=== PATIENT | female | born 1950 | race Hispanic/Latino ===

== ENCOUNTER 2017-07-22 13:47 | Emergency (ER) | payer OTHER ==
[2017-07-22] MEDS ORDERED: NA CHLORIDE 0.9% 1,000 ML ONE (14:37)
[2017-07-22] MEDS ORDERED: ALBUTEROL 2.5 MG/3 ML NEB SOL ONE (14:38)
[2017-07-22] MEDS ORDERED: METHYLPREDNISOLONE 125 MG INJ ONE (14:38)
[2017-07-22 15:13] LABS: Absolute Lymphocytes (CBC) 2.5 K/uL (0.7-4.9); Absolute Monocytes 0.7 K/uL (0.1-1.3); Absolute Neutrophil 5.2 K/uL (1.8-8.0); Basophils % 0.5 % (0-1.3); Eosinophils % 1.7 % (0-4.4); Hematocrit 35.3 % (36.0-45.0); Lymphocytes % 29.3 % (15.3-44.8); MCH 31.4 pg (27.0-35.0); MCV 95.6 fL (80-100); MPV 9.3 fL (7.6-11.3); Monocytes % 8.2 % (3.3-12.3); RBC Red Blood Cell Count 3.69 M/uL (3.86-4.86)
[2017-07-22 15:30] LABS: Magnesium 1.6 mg/dL (1.8-2.5); Protime INR 1.12
[2017-07-22 15:37] LABS: CKMB Creatine Kinase MB 0.9 ng/ml (0.3-4.0)
--- NOTE | 2017-07-22 16:04 | RAD REPORT ---
EXAM DESCRIPTION: RAD - Chest Pa And Lat (2 Views) - 07/22/2017 3:30 pm CLINICAL HISTORY: Cough and congestion COMPARISON: April 2016 TECHNIQUE: PA and lateral views of the chest were obtained. FINDINGS: The lungs are clear. Interstitial markings are similar to comparison. Small granuloma low er right lung field has not changed. Heart size is normal and central vasculature is within normal li mits. No pleural effusion or pneumothorax seen. No acute bony finding noted. No aortic abnormality . IMPRESSION: No acute cardiopulmonary process. No significant change from prior imaging.
[2017-07-22] MEDS ORDERED: MAGNESIUM OXIDE 400 MG TAB ONE (16:10)
--- NOTE | 2017-07-22 16:19 | ER ---
Nurse's Notes [facility] Name: Ct Mobley Age: 66 yrs Sex: Female : 1950 Arrival Date: 07/22/2017 Time: 13:51 Bed 19 Private MD: Darrian Montalvo E Diagnosis: Bronchitis, not specified as acute or chronic;Hypomagnesemia;Dehydration Presentation: 07/22 14:00 Presenting complaint: Child states: "her doctor sent her here because she's been taking aa5 Levaquin for a week and not getting better". pt c/o chest congestion and productive cough with white sputum. Pt also reports generalized weakness and body aches. Transition of care: patient was not received from another setting of care. Onset of symptoms was June 2017. Risk Assessment: Do you want to hurt yourself or someone else? Patient reports no desire to harm self or others. Initial Sepsis Screen: Does the patient meet any 2 criteria? No. Patient's initial sepsis screen is negative. Does the patient have a suspected source of infection? No. Patient's initial sepsis screen is negative. Care prior to arrival: None. 14:00 Method Of Arrival: Ambulatory aa5 14:00 Acuity: JASE 3 aa5 Triage Assessment: 14:30 General: Appears in no apparent distress. comfortable, Behavior is calm, cooperative. em Respiratory: Reports cough that is productive, pain with cough since 8 days ago Onset: The symptoms/episode began/occurred 8 days ago, the patient reports symptoms have resolved. Historical: - Allergies: 14:01 No Known Allergies; aa5 - PMHx: 14:01 Diabetes - NIDDM; Hypertension; Thyroid problem; aa5 - PSHx: 14:02 cataracts; aa5 - Immunization history:: Pneumococcal vaccine is not up to date. - Social history:: Smoking status: Patient/guardian denies using tobacco. - Ebola Screening: : No symptoms or risks identified at this time. - Family history:: not pertinent. - Hospitalizations: : No recent hospitalization is reported. - History obtained from: daughter. Screenin:29 Abuse screen: Denies threats or abuse. Nutritional screening: No deficits noted. em Tuberculosis screening: No symptoms or risk factors identified. Fall Risk None identified. Assessment: 14:20 General: Appears in no apparent distress. distressed, Behavior is calm, cooperative. em Pain: Complains of pain in chest. Neuro: Level of Consciousness is awake, alert, Oriented to person, place, time, situation. Cardiovascular: Heart tones S1 S2 present Capillary refill < 3 seconds Patient's skin is warm and dry. Rhythm is regular. Respiratory: Reports cough that is productive, pain with cough since 8 days Airway is patent Respiratory effort is even, unlabored, Respiratory pattern is regular, symmetrical, Breath sounds are clear bilaterally. GI: Abdomen is round non-distended, Patient currently denies nausea, vomiting. : No signs and/or symptoms were reported regarding the genitourinary system. EENT: No signs and/or symptoms were reported regarding the EENT system. Derm: Skin is intact, Skin is pink, warm \\T\\ dry. Musculoskeletal: Range of motion: intact in all extremities. 15:30 Reassessment: Patient appears in no apparent distress at this time. Patient and/or em family updated on plan of care and expected duration. Pain level reassessed. Patient is alert, oriented x 3, equal unlabored respirations, skin warm/dry/pink. Patient states feeling better. 16:30 Reassessment: Patient appears in no apparent distress at this time. Patient and/or em family updated on plan of care and expected duration. Pain level reassessed. Patient is alert, oriented x 3, equal unlabored respirations, skin warm/dry/pink. 16:31 Reassessment: I agree with above assessment by Mauricio Silva LVN. iw Vital Signs: 14:02 BP 130 / 75; Pulse 93; Resp 16 S; Temp 98.3(TE); Pulse Ox 95% on R/A; Weight 81.19 kg aa5 (R); Height 5 ft. 4 in. (162.56 cm) (R); Pain 8/10; 15:00 BP 115 / 62; Pulse 92; Resp 18; Pulse Ox 97% on R/A; em 16:14 BP 119 / 52; Pulse 97; Resp 16; Pulse Ox 97% on R/A; em 14:02 Body Mass Index 30.72 (81.19 kg, 162.56 cm) aa5 ED Course: 13:51 Patient arrived in ED. mr 13:51 Darrian Montalvo MD is Private Physician. mr 14:00 Arm band placed on. aa5 14:01 Triage completed. aa5 14:07 Jaime, Dawna, GLASS WORKER [facility]. kav 14:07 Manpreet Andino MD is Attending Physician. kav 14:29 Patient has correct armband on for positive identification. Bed in low position. Call em light in reach. Side rails up X2. Adult w/ patient. 14:30 No provider procedures requiring assistance completed. em 14:34 Mauricio Silva LVN is Primary Nurse. em 14:48 Radiology exam delayed due to patient receiving breathing treatment at this time. jb2 15:07 EKG done, by orthotic finish grinding technician. reviewed by Dawna BUI. sm3 15:26 Patient moved to radiology via wheelchair. jb2 15:26 X-ray completed. Patient tolerated procedure well. jb2 15:26 Patient moved back from radiology. jb2 15:27 XRAY Chest Pa And Lat (2 Views) In Process Unspecified. EDMS 16:18 Darrian Montalvo MD is Referral Physician. kav 16:50 IV discontinued, intact, bleeding controlled, No redness/swelling at site. Pressure em dressing applied. Administered Medications: 14:40 Drug: Albuterol 1.25 mg Route: Inhalation; em 15:05 Not Given (md): SOLU-Medrol 40 mg IVP once kav 15:06 Drug: SOLU-Medrol 125 mg Route: IVP; Site: right antecubital; iw 16:13 Follow up: Response: No adverse reaction em 15:14 Drug: NS 0.9% 1000 ml Route: IV; Rate: 75 ml/hr; Site: right antecubital; em 16:55 Follow up: IV Status: Completed infusion; IV Intake: 200ml em 16:13 Drug: Magnesium 400 mg Route: PO; em 16:54 Follow up: Response: No adverse reaction em Intake: 16:55 IV: 200ml; Total: 200ml. em Outcome: 16:19 Discharge ordered by . kav 16:55 Discharged to home ambulatory. em 16:55 Condition: good 16:55 Discharge instructions given to patient, family, Instructed on discharge instructions, follow up and referral plans. medication usage, Demonstrated understanding of instructions, follow-up care, medications, Prescriptions given X 4. 16:57 Patient left the ED. em Signatures: Dispatcher [employer] EDCT Dawna Sandoval FNP GLASS WORKER Bisi Amador mr [place], Tiburcio jb2 Mauricio Silva, PLASTIC AND RECONSTRUCTIVE SURGEON PLASTIC AND RECONSTRUCTIVE SURGEON em Ashlee Trejo RN RN iw Karena Guzman RN RN aa5 Adeola Cervantes 3 Corrections: (The following items were deleted from the chart) 16:17 12:40 Albuterol 1.25 mg Inhalation em em
--- NOTE | 2017-07-22 16:19 | EDPHYS ---
Physician Documentation [facility] Name: Ct Mobley Age: 66 yrs Sex: Female : 1950 Arrival Date: 07/22/2017 Time: 13:51 Bed 19 Private MD: Darrian Montalvo E ED Physician Manpreet Andino HPI: 07/22 14:21 This 66 yrs old Female presents to ER via Ambulatory with complaints of kav Shortness Of Breath, Weakness, Cough, Congestion. 14:21 The patient or guardian reports airway noise, cough, that is intermittent, described as kav moderate, with productive sputum, that is white. Onset: The symptoms/episode began/occurred acutely, 10 day(s) ago. Severity of symptoms: At their worst the symptoms were moderate, just prior to arrival, in the emergency department the symptoms are unchanged, despite taking antibiotic therapy: Levaquin and Prednisone for the past 8 days.. 14:25 Modifying factors: The symptoms are alleviated by nothing, the symptoms are aggravated kav by nothing. Associated signs and symptoms: The patient has no apparent associated signs or symptoms. The patient has experienced a previous episode, approximately 8 days ago. The patient has been recently seen by a physician: the patient's primary care provider, Dr. Trejo. Patient presents with chief c/o acute onset of cough x 10 days. Seen by pcp/dr. trejo approximately 8 days ago and give prescription for levaquin and prednisone. She denies fever. Oxygen saturation on RA OA is 99%, BP 124/72. Daughter at bedside. Patient is Cuban Speaking Only.. Historical: - Allergies: 14:01 No Known Allergies; aa5 - PMHx: 14:01 Diabetes - NIDDM; Hypertension; Thyroid problem; aa5 - PSHx: 14:02 cataracts; aa5 - Immunization history:: Pneumococcal vaccine is not up to date. - Social history:: Smoking status: Patient/guardian denies using tobacco. - Ebola Screening: : No symptoms or risks identified at this time. - Family history:: not pertinent. - Hospitalizations: : No recent hospitalization is reported. - History obtained from: daughter. ROS: 14:27 Constitutional: Negative for fever, chills, and weight loss, Eyes: Negative for injury, kav pain, redness, and discharge, ENT: Negative for injury, pain, and discharge, Neck: Negative for injury, pain, and swelling, Cardiovascular: Negative for chest pain, palpitations, and edema, Abdomen/GI: Negative for abdominal pain, nausea, vomiting, diarrhea, and constipation, Back: Negative for injury and pain, : Negative for injury, bleeding, discharge, and swelling, MS/Extremity: Negative for injury and deformity, Skin: Negative for injury, rash, and discoloration, Neuro: Negative for headache, weakness, numbness, tingling, and seizure, Psych: Negative for depression, anxiety, suicide ideation, homicidal ideation, and hallucinations, Allergy/Immunology: Negative for hives, rash, and allergies, Endocrine: Negative for neck swelling, polydipsia, polyuria, polyphagia, and marked weight changes, Hematologic/Lymphatic: Negative for swollen nodes, abnormal bleeding, and unusual bruising. 14:27 Respiratory: Positive for cough, with white sputum, wheezing, expiratory, of the left posterior lower lobe, right posterior middle lobe and right posterior lower lobe, Negative for dyspnea on exertion, hemoptysis, orthopnea, pleurisy, shortness of breath. Exam: 14:27 Constitutional: This is a well developed, well nourished patient who is awake, alert, kav and in no acute distress. Head/Face: Normocephalic, atraumatic. Eyes: Pupils equal round and reactive to light, extra-ocular motions intact. Lids and lashes normal. Conjunctiva and sclera are non-icteric and not injected. Cornea within normal limits. Periorbital areas with no swelling, redness, or edema. ENT: Nares patent. No nasal discharge, no septal abnormalities noted. Tympanic membranes are normal and external auditory canals are clear. Oropharynx with no redness, swelling, or masses, exudates, or evidence of obstruction, uvula midline. Mucous membranes moist. Neck: Trachea midline, no thyromegaly or masses palpated, and no cervical lymphadenopathy. Supple, full range of motion without nuchal rigidity, or vertebral point tenderness. No Meningismus. Chest/axilla: Normal chest wall appearance and motion. Nontender with no deformity. No lesions are appreciated. Cardiovascular: Regular rate and rhythm with a normal S1 and S2. No gallops, murmurs, or rubs. Normal PMI, no JVD. No pulse deficits. Abdomen/GI: Soft, non-tender, with normal bowel sounds. No distension or tympany. No guarding or rebound. No evidence of tenderness throughout. Back: No spinal tenderness. No costovertebral tenderness. Full range of motion. Skin: Warm, dry with normal turgor. Normal color with no rashes, no lesions, and no evidence of cellulitis. MS/ Extremity: Pulses equal, no cyanosis. Neurovascular intact. Full, normal range of motion. Neuro: Awake and alert, GCS 15, oriented to person, place, time, and situation. Cranial nerves II-XII grossly intact. Motor strength 5/5 in all extremities. Sensory grossly intact. Cerebellar exam normal. Normal gait. Psych: Awake, alert, with orientation to person, place and time. Behavior, mood, and affect are within normal limits. 14:27 Respiratory: the patient does not display signs of respiratory distress, Respirations: no acute changes, Breath sounds: rhonchi, that are moderate, are located in both bases, wheezing: that is mild. Vital Signs: 14:02 BP 130 / 75; Pulse 93; Resp 16 S; Temp 98.3(TE); Pulse Ox 95% on R/A; Weight 81.19 kg aa5 (R); Height 5 ft. 4 in. (162.56 cm) (R); Pain 8/10; 15:00 BP 115 / 62; Pulse 92; Resp 18; Pulse Ox 97% on R/A; em 16:14 BP 119 / 52; Pulse 97; Resp 16; Pulse Ox 97% on R/A; em 14:02 Body Mass Index 30.72 (81.19 kg, 162.56 cm) aa5 MDM: 14:07 Medical screening is not applicable. [facility] 14:27 Data reviewed: vital signs, nurses notes. [facility] 16:18 Data reviewed: lab test result(s), CBC, electrolytes, radiologic studies. 07/22 14:24 Order name: Blood Culture Adult (2) 07/22 14:24 Order name: BNP; Complete Time: 15:51 [facility] 07/22 15:51 Interpretation: Within normal limits. 07/22 14:24 Order name: CBC with Diff; Complete Time: 15:51 [facility] 07/22 15:51 Interpretation: Normal except: RBC 3.69; HGB 11.6; HCT 35.3. 07/22 14:24 Order name: Ckmb; Complete Time: 15:52 07/22 15:52 Interpretation: Within normal limits. 07/22 14:24 Order name: CPK; Complete Time: 15:52 07/22 15:52 Interpretation: Within normal limits. 07/22 14:24 Order name: D-Dimer; Complete Time: 16:16 07/22 16:16 Interpretation: Within normal limits. 07/22 14:24 Order name: XRAY Chest Pa And Lat (2 Views); Complete Time: 16:16 07/22 16:17 Interpretation: No acute disease. 07/22 14:24 Order name: Magnesium; Complete Time: 15:51 07/22 15:51 Interpretation: MG 1.6. 07/22 14:24 Order name: PT-INR; Complete Time: 16:16 07/22 16:16 Interpretation: Normal except: PT 13.2. 07/22 14:24 Order name: Ptt, Activated; Complete Time: 16:16 07/22 16:17 Interpretation: Within normal limits. 07/22 14:24 Order name: Troponin (emerg Dept Use Only); Complete Time: 15:52 07/22 15:52 Interpretation: Within normal limits. 07/22 14:24 Order name: Influenza Screen (a \T\ B); Complete Time: 15:52 07/22 15:52 Interpretation: Within normal limits. 07/22 14:24 Order name: EKG; Complete Time: 14:25 07/22 14:24 Order name: Cardiac monitoring; Complete Time: 14:36 07/22 14:24 Order name: EKG - Nurse/Tech; Complete Time: 14:36 07/22 14:24 Order name: IV Saline Lock; Complete Time: 14:36 07/22 14:24 Order name: Labs collected and sent; Complete Time: 14:36 07/22 14:24 Order name: O2 Per Protocol; Complete Time: 14:36 07/22 14:24 Order name: O2 Sat Monitoring; Complete Time: 14:36 kav Administered Medications: 14:40 Drug: Albuterol 1.25 mg Route: Inhalation; em 15:05 Not Given (): SOLU-Medrol 40 mg IVP once kav 15:06 Drug: SOLU-Medrol 125 mg Route: IVP; Site: right antecubital; iw 16:13 Follow up: Response: No adverse reaction em 15:14 Drug: NS 0.9% 1000 ml Route: IV; Rate: 75 ml/hr; Site: right antecubital; em 16:55 Follow up: IV Status: Completed infusion; IV Intake: 200ml em 16:13 Drug: Magnesium 400 mg Route: PO; em 16:54 Follow up: Response: No adverse reaction em Disposition: 17:02 Co-signature as Attending Physician, Manpreet Andino MD I agree with the assessment and kdr plan of care. Disposition: 07/22/17 16:19 Discharged to Home. Impression: Bronchitis, not specified as acute or chronic, Hypomagnesemia, Dehydration. - Condition is Stable. - Discharge Instructions: Hypomagnesemia, Upper Respiratory Infection, Adult, Acute Bronchitis, [id number], Dehydration, Adult, [id number]. - Prescriptions for Advair Diskus 500- 50 mcg/Dose Inhalation Disk with Device - inhale 1 puff by INHALATION route every 12 hours; 1 packet. Zithromax Z- Jose 250 mg Oral Tablet - take 1 tablet by ORAL route as directed for 5 days Day 1 - take two (2) tablets one time. Day 2, 3, 4 , 5 take one (1) tablet once daily.; 6 tablet. benzonatate 100 mg Oral Capsule - take 1 capsule by ORAL route 3 times per day; 30 capsule. Albuterol Sulfate 2.5 mg /3 mL (0.083 %) Inhalation Solution for Nebulization - inhale 1 unit by NEBULIZATION route every 8 hours As needed; 1 box. - Medication Reconciliation Form, Thank You Letter, Antibiotic Education, Prescription Opioid Use form. - Follow up: Darrian Montalvo MD; When: 2 - 3 days; Reason: If symptoms return, Recheck today's complaints, Continuance of care, Re-evaluation by your physician. - Problem is new. - Symptoms have improved. Signatures: Dispatcher [employer] Manpreet Guillory MD MD kdr Vern, Katherine, SCISSORS GRINDER SCISSORS GRINDER Mauricio Dominguez, PURCHASING BUYER PURCHASING BUYER em Ashlee Trejo, RN RN iw Karena Guzman, RN RN aa5 Corrections: (The following items were deleted from the chart) 16:57 16:19 07/22/2017 16:19 Discharged to Home. Impression: Bronchitis, not specified as em acute or chronic; Hypomagnesemia; Dehydration. Condition is Stable. Forms are Medication Reconciliation Form, Thank You Letter, Antibiotic Education, Prescription Opioid Use. Follow up: Darrian Montalvo; When: 2 - 3 days; Reason: If symptoms return, Recheck today's complaints, Continuance of care, Re-evaluation by your physician. Problem is new. Symptoms have improved. kav
--- NOTE | 2017-07-22 18:30 | EKG ---
Test Date: 2017-07-22 Test Time: 14:46:16 Trolley Wire Installer: JUNE MEASUREMENT RESULTS: Intervals: Rate: 85 NH: 178 QRSD: 88 QT: 380 QTc: 452 [place]: P: 73 NH: 178 QRS: 38 T: 46 INTERPRETIVE STATEMENTS: Normal sinus rhythm Normal ECG Compared to ECG 02/29/2016 00:17:14 No significant changes Electronically Signed On 07-22-17 18:29:58 CDT by Hay Gill
== END 2017-07-22 16:57 | disposition home or self-care (01) ==
LOC: ER 13:47
DX: J40 Bronchitis, not specified as acute or chronic (principal); E83.42 Hypomagnesemia; E86.0 Dehydration; E11.9 Type 2 diabetes mellitus without complications; I10 Essential (primary) hypertension
CPT/HCPCS: 36415; 71046; 82550; 82553; 83735; 83880; 84484; 85025; 85379; 85610; 85730; 87040 ×2; 87804 ×2; 93005; 96361; 96374; 99284; J2930; J7030

== ENCOUNTER 2018-02-08 17:20 | Emergency (ER) | payer OTHER ==
--- NOTE | 2018-02-08 19:10 | RAD REPORT ---
EXAM DESCRIPTION: CT - Head Brain Wo Cont - 02/08/2018 6:47 pm CLINICAL HISTORY: Headache, dizziness, head and face pain COMPARISON: None. TECHNIQUE: Axial 5 mm thick images of the head were obtained without IV contrast. All CT scans are performed using dose optimization technique as appropriate and may include automated exposure control or mA/KV adjustment according to patient size. FINDINGS: No intracranial hemorrhage, mass, edema or shift of mid-line structures. No acute infarcti on changes seen. Minimal atrophy and chronic ischemic changes are present. Ventricles are normal. Mastoid air cells and visualized portions of the paranasal sinuses are clear. No acute bony findings. IMPRESSION: Negative non-contrast CT head examination for acute finding.
--- NOTE | 2018-02-08 19:38 | ER ---
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 Transition of care: patient was not received from another setting of care. Onset of symptoms was February 08, 2018. Risk Assessment: Do you want to hurt yourself or someone else? Patient reports no desire to harm self or others. Initial Sepsis Screen: Does the patient meet any 2 criteria? No. Patient's initial sepsis screen is negative. Does the patient have a suspected source of infection? No. Patient's initial sepsis screen is negative. Care prior to arrival: None. 17:22 Method Of Arrival: Ambulatory 17:22 Acuity: JASE 4 hj Triage Assessment: 17:26 Headache History: Denies prior headaches. General: Appears in no apparent distress. hj uncomfortable, Behavior is calm, cooperative, appropriate for age. Pain: Complains of pain in throat, head, body Pain Pain began 2-3 days ago. Also complains of. Neuro: Level of Consciousness is awake, alert, obeys commands, Oriented to person, place, time, situation, Appropriate for age. Historical: - Allergies: 17:26 No Known Allergies; hj - Home Meds: 17:26 losartan 50 mg Oral tab [Active]; Metformin Oral [Active]; omeprazole magnesium Oral hj [Active]; - PMHx: 17:26 Diabetes - NIDDM; Hypertension; Thyroid problem; hj - PSHx: 17:26 cataracts; hj - Immunization history:: Adult Immunizations not up to date. - Social history:: Smoking status: Patient/guardian denies using tobacco, Patient/guardian denies using alcohol. - Ebola Screening: : Patient negative for fever greater than or equal to 101.5 degrees Fahrenheit, and additional compatible Ebola Virus Disease symptoms Patient denies exposure to infectious person Patient denies travel to an Ebola-affected area in the 21 days before illness onset. Screenin:26 Abuse screen: Denies threats or abuse. Denies injuries from another. Nutritional hj screening: No deficits noted. Tuberculosis screening: No symptoms or risk factors identified. Fall Risk None identified. Assessment: 18:07 General: Appears in no apparent distress. Behavior is calm, cooperative. Pain: la1 Complains of pain in left ethmoid sinus and right ethmoid sinus. Neuro: Level of Consciousness is awake, alert, obeys commands, Oriented to person, place, time, situation. Neuro: Sock Turner are equal bilaterally Moves all extremities. Full function Gait is steady, Speech is normal, Facial symmetry appears normal, Pupils are PERRLA. Cardiovascular: Heart tones S1 S2 present Capillary refill < 3 seconds Patient's skin is warm and dry. Respiratory: Airway is patent Respiratory effort is even, unlabored, Respiratory pattern is regular, symmetrical. GI: No signs and/or symptoms were reported involving the gastrointestinal system. : No signs and/or symptoms were reported regarding the genitourinary system. 19:33 Reassessment: Patient appears in no apparent distress at this time. No changes from la1 previously documented assessment. Patient and/or family updated on plan of care and expected duration. Pain level reassessed. Vital Signs: 17:27 BP 155 / 88; Pulse 83; Resp 18; Temp 97.7(O); Pulse Ox 98% on R/A; Weight 78.93 kg; hj Height 5 ft. 9 in. (175.26 cm); Pain 7/10; 19:45 BP 147 / 74; Pulse 86; Resp 16; Pulse Ox 98% on R/A; la1 17:27 Body Mass Index 25.70 (78.93 kg, 175.26 cm) ED Course: 17:21 Patient arrived in ED. 17:25 Triage completed. 17:27 Arm band placed on right wrist. 17:27 Patient has correct armband on for positive identification. Bed in low position. Call light in reach. Side rails up X 1. Adult w/ patient. 17:[address] F[facility]-C [facility]. kb 17:29 Daniel De Santiago MD is Attending Physician. kb 17:38 Rolando Corcoran RN is Primary Nurse. la1 18:48 CT Head Brain wo Cont In Process Unspecified. EDMS 19:45 No provider procedures requiring assistance completed. Patient did not have IV access la1 during this emergency room visit. Administered Medications: No medications were administered Outcome: 19:37 Discharge ordered by . grayson 19:45 Discharged to home ambulatory. la1 19:45 Condition: stable 19:45 Discharge instructions given to patient, Instructed on discharge instructions, follow up and referral plans. Demonstrated understanding of instructions, follow-up care. 19:46 Patient left the ED. 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 hj 9 in.; BMI: 25.7; Pain 7/10; hj
--- NOTE | 2018-02-08 19:38 | EDPHYS ---
Physician Documentation [facility] Name: Ct Mobley Age: 67 yrs Sex: Female : 1950 Arrival Date: 02/08/2018 Time: 17:21 Bed 27 Private MD: ED Physician Daniel De Santiago HPI: 02/08 17:46 This 67 yrs old Female presents to ER via Ambulatory with complaints of kb Headache, Dizziness. 17:46 The patient or guardian reports cough, that is intermittent, described as mild, with no kb sputum, flu symptoms, arthralgias, myalgias. Onset: The symptoms/episode began/occurred 2 day(s) ago. Severity of symptoms: At their worst the symptoms were moderate, in the emergency department the symptoms are unchanged. Modifying factors: The symptoms are alleviated by nothing, the symptoms are aggravated by nothing. Associated signs and symptoms: Pertinent positives: fever, rhinorrhea, sore throat, Pertinent negatives: chest pain, diarrhea, ear ache, nausea, vomiting. The patient has not experienced similar symptoms in the past. The patient has not recently seen a physician. Pt reports sinus congestion, pain, fever,chills, cough, headache and body aches for a few days. Historical: - Allergies: 17:26 No Known Allergies; hj - Home Meds: 17:26 losartan 50 mg Oral tab [Active]; Metformin Oral [Active]; omeprazole magnesium Oral hj [Active]; - PMHx: 17:26 Diabetes - NIDDM; Hypertension; Thyroid problem; hj - PSHx: 17:26 cataracts; hj - Immunization history:: Adult Immunizations not up to date. - Social history:: Smoking status: Patient/guardian denies using tobacco, Patient/guardian denies using alcohol. - Ebola Screening: : Patient negative for fever greater than or equal to 101.5 degrees Fahrenheit, and additional compatible Ebola Virus Disease symptoms Patient denies exposure to infectious person Patient denies travel to an Ebola-affected area in the 21 days before illness onset. ROS: 17:43 Cardiovascular: Negative for chest pain, palpitations, and edema, Abdomen/GI: Negative kb for abdominal pain, nausea, vomiting, diarrhea, and constipation, Back: Negative for injury and pain, MS/Extremity: Negative for injury and deformity, Skin: Negative for injury, rash, and discoloration. 17:43 Constitutional: Positive for body aches, chills, fatigue, fever, malaise, Negative for poor PO intake, weight loss. 17:43 ENT: Positive for rhinorrhea, sinus congestion, sinus pain, sore throat. 17:43 Respiratory: Positive for cough, Negative for dyspnea on exertion, hemoptysis, orthopnea, pleurisy, shortness of breath, sputum production, wheezing. Exam: 17:45 Constitutional: This is a well developed, well nourished patient who is awake, alert, kb and in no acute distress. Head/Face: Normocephalic, atraumatic. ENT: Nares patent. No nasal discharge, no septal abnormalities noted. Tympanic membranes are normal and external auditory canals are clear. Oropharynx with no redness, swelling, or masses, exudates, or evidence of obstruction, uvula midline. Mucous membranes moist. Neck: Trachea midline, no thyromegaly or masses palpated, and no cervical lymphadenopathy. Supple, full range of motion without nuchal rigidity, or vertebral point tenderness. No Meningismus. Chest/axilla: Normal chest wall appearance and motion. Nontender with no deformity. No lesions are appreciated. Cardiovascular: Regular rate and rhythm with a normal S1 and S2. No gallops, murmurs, or rubs. Normal PMI, no JVD. No pulse deficits. Respiratory: Lungs have equal breath sounds bilaterally, clear to auscultation and percussion. No rales, rhonchi or wheezes noted. No increased work of breathing, no retractions or nasal flaring. Abdomen/GI: Soft, non-tender, with normal bowel sounds. No distension or tympany. No guarding or rebound. No evidence of tenderness throughout. Skin: Warm, dry with normal turgor. Normal color with no rashes, no lesions, and no evidence of cellulitis. MS/ Extremity: Pulses equal, no cyanosis. Neurovascular intact. Full, normal range of motion. Neuro: Awake and alert, GCS 15, oriented to person, place, time, and situation. Cranial nerves II-XII grossly intact. Motor strength 5/5 in all extremities. Sensory grossly intact. Cerebellar exam normal. Normal gait. 17:46 Head/face: Sinus tenderness, that is moderate, is located over the right ethmoid sinus kb and left ethmoid sinus. Vital Signs: 17:27 BP 155 / 88; Pulse 83; Resp 18; Temp 97.7(O); Pulse Ox 98% on R/A; Weight 78.93 kg; hj Height 5 ft. 9 in. (175.26 cm); Pain 7/10; 19:45 BP 147 / 74; Pulse 86; Resp 16; Pulse Ox 98% on R/A; la1 17:27 Body Mass Index 25.70 (78.93 kg, 175.26 cm) hj MDM: 17:29 Patient medically screened. kb 17:46 Data reviewed: vital signs, nurses notes. Data interpreted: Pulse oximetry: on room air kb is 98 %. Interpretation: normal. 19:36 Counseling: I had a detailed discussion with the patient and/or guardian regarding: the kb historical points, exam findings, and any diagnostic results supporting the discharge/admit diagnosis, lab results, radiology results, the need for outpatient follow up, a family practitioner, to return to the emergency department if symptoms worsen or persist or if there are any questions or concerns that arise at home. 02/08 17:37 Order name: Flu; Complete Time: 18:29 kb 02/08 17:37 Order name: Strep; Complete Time: 18:03 kb 02/08 18:04 Order name: Throat Culture EDLA 02/08 18:29 Order name: CT Head Brain wo Cont; Complete Time: 19:12 kb Administered Medications: No medications were administered Disposition: 02/09 06:34 Co-signature as Attending Physician, Daniel De Santiago MD I agree with the assessment and zackery plan of care. Disposition: 02/08/18 19:37 Discharged to Home. Impression: Acute pharyngitis. - Condition is Stable. - Discharge Instructions: Pharyngitis, [id number]-[id number], Viral Respiratory Infection, [id number]. - Medication Reconciliation Form, Thank You Letter, Antibiotic Education, Prescription Opioid Use form. - Follow up: Emergency Department; When: As needed; Reason: Worsening of condition. Follow up: Private Physician; When: 2 - 3 days; Reason: Recheck today's complaints, Continuance of care, Re-evaluation by your physician. Signatures: Dispatcher [employer] EDLA [address], SOCK FOLDER-C RAMYA-Daniel Varma MD MD cha Attema, Lee, RN RN la1 Corbin Arce RN RN hj Corrections: (The following items were deleted from the chart) 02/08 17:47 17:46 Pt reports sinus congestion, pain, fever,chills, cough, and body aches for . kb kb 19:46 19:37 02/08/2018 19:37 Discharged to Home. Impression: Acute pharyngitis. Condition is la1 Stable. Forms are Medication Reconciliation Form, Thank You Letter, Antibiotic Education, Prescription Opioid Use. Follow up: Emergency Department; When: As needed; Reason: Worsening of condition. Follow up: Private Physician; When: 2 - 3 days; Reason: Recheck today's complaints, Continuance of care, Re-evaluation by your physician. kb
== END 2018-02-08 19:46 | disposition home or self-care (01) ==
LOC: ER 17:20
DX: J02.9 Acute pharyngitis, unspecified (principal); I10 Essential (primary) hypertension; E11.9 Type 2 diabetes mellitus without complications; E07.9 Disorder of thyroid, unspecified
CPT/HCPCS: 70450; 87070; 87081; 87804; 99283

== ENCOUNTER 2020-01-09 09:07 | Inpatient (IN) | payer OTHER ==
--- NOTE | 2020-01-09 10:05 | RAD REPORT ---
EXAM DESCRIPTION: Kevin Single View01/09/2020 9:54 am CLINICAL HISTORY: Chest pain COMPARISON: 2018 FINDINGS: The left base is hazy. Right lung appears clear Heart is normal size IMPRESSION: Left base is hazy which may indicate a mild pneumonia
[2020-01-09 10:25] LABS: Absolute Lymphocytes (CBC) 0.6 K/uL (0.7-4.9); Basophils % 0.1 % (0-1.3); Hematocrit 35.4 % (36.0-45.0); Lymphocytes % 14.5 % (15.3-44.8); RBC Red Blood Cell Count 3.78 M/uL (3.86-4.86)
[2020-01-09 10:27] LABS: Protime INR 1.16
[2020-01-09 10:51] LABS: ALT/SGPT 19 U/L (12-78); AST/SGOT 19 U/L (15-37); Albumin 2.9 g/dL (3.4-5.0); Alkaline Phosphatase 45 U/L (45-117); BUN Blood Urea Nitrogen 30 mg/dL (7-18); Bicarbonate 29 mmol/L (21-32); Bilirubin Direct 0.3 mg/dL (0-0.2); Bilirubin Total 0.8 mg/dL (0.2-1.0); Glucose Level 141 mg/dL (74-106); Magnesium 1.8 mg/dL (1.8-2.4); NT PRO-BNP 89 pg/mL (<125); Potassium 3.4 mmol/L (3.5-5.1); Protein, Total 6.9 g/dL (6.4-8.2); Sodium Level 134 mmol/L (136-145); Troponin (Emerg Dept Use Only) < 0.02 ng/mL (0.0-0.045)
--- NOTE | 2020-01-09 11:09 | ER ---
Nurse's Notes [facility] Name: Ct Mobley Age: 69 yrs Sex: Female : 1950 Arrival Date: 01/09/2020 Time: 09:11 Bed 17 Private MD: Diagnosis: Other viral pneumonia;Hypoxia Presentation: 01/08 09:28 Chief complaint: Patient states: + COVID a week ago. Pt only reported a cough ss initially, but now feels very fatigued and has not been eating. Coronavirus screen: Client denies travel out of the [place] in the last 14 days. Ebola Screen: Patient denies exposure to infectious person. Patient denies travel to an Ebola-affected area in the 21 days before illness onset. Initial Sepsis Screen: Does the patient meet any 2 criteria? No. Patient's initial sepsis screen is negative. Does the patient have a suspected source of infection? No. Patient's initial sepsis screen is negative. Risk Assessment: Do you want to hurt yourself or someone else? Patient reports no desire to harm self or others. Onset of symptoms was January 03, 2020. 09:28 Method Of Arrival: Ambulatory ss 09:28 Acuity: JASE 2 ss Historical: - Allergies: 09:32 No Known Allergies; ss - PMHx: 09:32 Diabetes - NIDDM; Hypertension; Thyroid problem; ss - PSHx: 09:32 cataracts; ss - Immunization history:: Flu vaccine is not up to date. - Social history:: Smoking status: Patient denies any tobacco usage or history of. Screenin:27 Abuse screen: Denies threats or abuse. Nutritional screening: No deficits noted. em Tuberculosis screening: No symptoms or risk factors identified. Fall Risk None identified. Assessment: 10:00 General: Appears in no apparent distress. uncomfortable, well groomed, well developed, em well nourished, Behavior is calm, cooperative, appropriate for age, Reports fatigue for Denies fever. Pain: Denies pain. Neuro: Level of Consciousness is awake, alert, obeys commands, Oriented to person, place, time, situation. Cardiovascular: Denies chest pain, Capillary refill < 3 seconds Patient's skin is warm and dry. Respiratory: Reports cough that is productive, Airway is patent Respiratory effort is even, unlabored, Respiratory pattern is regular, symmetrical, Denies shortness of breath. GI: Reports intolerance of food. Derm: Skin is intact, is fragile, is thin, Skin is pink, warm \T\ dry. Musculoskeletal: Capillary refill < 3 seconds, Range of motion: intact in all extremities. 10:38 Reassessment: DD [id number], provider notified. em 11:21 Reassessment: wheeled to CT via stretcher. em 12:30 Reassessment: Patient appears in no apparent distress at this time. Patient and/or em family updated on plan of care and expected duration. Pain level reassessed. Patient is alert, oriented x 3, equal unlabored respirations, skin warm/dry/pink. 13:30 Reassessment: Patient appears in no apparent distress at this time. Patient and/or em family updated on plan of care and expected duration. Pain level reassessed. Patient is alert, oriented x 3, equal unlabored respirations, skin warm/dry/pink. 14:30 Reassessment: Patient appears in no apparent distress at this time. Patient and/or em family updated on plan of care and expected duration. Pain level reassessed. Patient is alert, oriented x 3, equal unlabored respirations, skin warm/dry/pink. 15:30 Reassessment: Patient appears in no apparent distress at this time. Patient and/or em family updated on plan of care and expected duration. Pain level reassessed. Patient is alert/active/playful, equal unlabored respirations, skin warm/dry/pink. Vital Signs: 09:28 BP 116 / 65; Pulse 87; Resp 16; Temp 97.4(TE); Pulse Ox 86% on R/A; Weight 86.18 kg; Height 5 ft. 8 in. (172.72 cm); Pain 0/10; 10:27 BP 107 / 61; Pulse 87; Resp 17; Temp 99.1(O); Pulse Ox 98% on 2 lpm NC; dh3 13:00 BP 108 / 62; Pulse 85; Resp 18; Pulse Ox 97% on 2 lpm NC; em 14:31 BP 114 / 57; Pulse 90; Resp 20; Pulse Ox 97% on 2 lpm NC; Pain 0/10; em 09:28 Body Mass Index 28.89 (86.18 kg, 172.72 cm) ED Course: 09:11 Patient arrived in ED. ds1 09:14 Hiram Pickard PA is PHCP. [facility] 09:14 Darian Willett MD is Attending Physician. [facility] 09:17 Mauricio Silva, VERITO is Primary Nurse. em 09:31 Triage completed. ss 09:33 Arm band placed on right wrist. 09:54 XRAY Chest (1 view) In Process Unspecified. EDMS 10:08 Initial lab(s) drawn, by fl, sent to lab. First set of blood cultures drawn by me. dh3 Inserted saline lock: 20 gauge in left antecubital area, using aseptic technique. Blood collected. 10:10 Second set of blood cultures drawn by fl. dh3 10:19 EKG done, by ED staff, reviewed by Hiram PARDO. dh3 10:27 Patient has correct armband on for positive identification. Placed in gown. Bed in low em position. Call light in reach. Adult w/ patient. Pulse ox on. NIBP on. 11:07 Kiara Skaggs MD is Hospitalizing Provider. [facility] 11:50 CT Chest For PE Angio In Process Unspecified. EDMS 12:29 Diet: Patient given a regular meal tray. dh3 16:05 No provider procedures requiring assistance completed. Patient admitted, IV remains in em place. Administered Medications: 12:27 Drug: NS 0.9% 500 ml Route: IV; Rate: bolus; Site: left hand; em 14:31 Follow up: IV Status: Completed infusion; IV Intake: 500ml em 12:27 Drug: Decadron - Dexamethasone 10 mg Route: IVP; Site: left hand; em 14:31 Follow up: Response: No adverse reaction em Intake: 14:31 IV: 500ml; Total: 500ml. em Outcome: 11:08 Decision to Hospitalize by Provider. [facility] 16:23 Admitted to ICU accompanied by nurse, via wheelchair, room 5, with chart, Report called em to VERITO Aldana 16:23 Condition: good 16:23 Instructed on the need for admit, Demonstrated understanding of instructions. 16:24 Patient left the ED. em Signatures: Dispatcher [employer] EDNJ Hiram Pickard PA PA [facility] Mauricio Silva, RN RN em Ricarda Reynolds ds1 Isidra Sanabria RN RN Marie Quinteros 3 Corrections: (The following items were deleted from the chart) 09:33 09:28 BP 116 / 65; Pulse 87bpm; Resp 16bpm; Pulse Ox 90% RA; Temp 97.4F Temporal; 86.18 ss kg; Height 5 ft. 8 in.; BMI: 28.8; Pain 0/10; ss
--- NOTE | 2020-01-09 11:09 | EDPHYS ---
Physician Documentation [facility] Name: Ct Mobley Age: 69 yrs Sex: Female : 1950 Arrival Date: 01/09/2020 Time: 09:11 Bed 17 Private MD: ED Physician Darian Willett HPI: 01/08 09:31 This 69 yrs old Female presents to ER via Ambulatory with complaints of Covid jmm + Weakness. 09:31 The patient or guardian reports cough. Onset: The symptoms/episode began/occurred jmm gradually, 1 week(s) ago. Modifying factors: The symptoms are alleviated by nothing, the symptoms are aggravated by nothing. This is a 69 year old female with a history of dm, htn, that presents to the ED with complaints of weakness and fatigue beginning approx 3 days ago. Was diagnosed with covid with a slight cough approx 1 week ago. . Historical: - Allergies: 09:32 No Known Allergies; ss - PMHx: 09:32 Diabetes - NIDDM; Hypertension; Thyroid problem; ss - PSHx: 09:32 cataracts; ss - Immunization history:: Flu vaccine is not up to date. - Social history:: Smoking status: Patient denies any tobacco usage or history of. ROS: 12:10 Constitutional: Negative for fever, chills, and weight loss, Cardiovascular: Negative jmm for chest pain, palpitations, and edema. 12:10 Respiratory: Positive for cough. 12:10 Neuro: Positive for headache. 12:10 All other systems are negative. Exam: 12:10 Constitutional: This is a well developed, well nourished patient who is awake, alert, jmm and in no acute distress. Head/Face: atraumatic. Eyes: EOMI, no conjunctival erythema appreciated ENT: Moist Mucus Membranes Neck: Trachea midline, Supple Chest/axilla: Normal chest wall appearance and motion. Cardiovascular: Regular rate and rhythm. No edema appreciated Respiratory: Normal respirations, no respiratory distress appreciated Abdomen/GI: Non distended, soft Back: Normal ROM Skin: General appearance color normal MS/ Extremity: Moves all extremities, no obvious deformities appreciated, no edema noted to the lower extremities Neuro: Awake and alert, normal gait Psych: Behavior is normal, Mood is normal, Patient is cooperative and pleasant Vital Signs: 09:28 BP 116 / 65; Pulse 87; Resp 16; Temp 97.4(TE); Pulse Ox 86% on R/A; Weight 86.18 kg; ss Height 5 ft. 8 in. (172.72 cm); Pain 0/10; 10:27 BP 107 / 61; Pulse 87; Resp 17; Temp 99.1(O); Pulse Ox 98% on 2 lpm NC; dh3 13:00 BP 108 / 62; Pulse 85; Resp 18; Pulse Ox 97% on 2 lpm NC; em 14:31 BP 114 / 57; Pulse 90; Resp 20; Pulse Ox 97% on 2 lpm NC; Pain 0/10; em 09:28 Body Mass Index 28.89 (86.18 kg, 172.72 cm) ss MDM: 09:31 Patient medically screened. [facility] 11:06 Data reviewed: vital signs, nurses notes. Counseling: I had a detailed discussion with luis a the patient and/or guardian regarding: the historical points, exam findings, and any diagnostic results supporting the discharge/admit diagnosis, lab results, the need for further work-up and treatment in the hospital. ED course: I discussed the patient with Dr. Skaggs whom accepted admission. . 01/08 09:34 Order name: Basic Metabolic Panel; Complete Time: 10:55 [facility] 01/08 09:34 Order name: CBC with Diff; Complete Time: 10:27 [facility] 01/08 09:34 Order name: LFT's; Complete Time: 10:55 [facility] 01/08 09:34 Order name: Magnesium; Complete Time: 10:55 [facility] 01/08 09:34 Order name: NT PRO-BNP; Complete Time: 10:55 [facility] 01/08 09:34 Order name: PT-INR; Complete Time: 10:42 [facility] 01/08 09:34 Order name: Troponin (emerg Dept Use Only); Complete Time: 10:55 [facility] 01/08 09:34 Order name: Blood Culture Adult (2) [facility] 01/08 09:34 Order name: Lactate; Complete Time: 10:43 [facility] 01/08 09:34 Order name: Procalcitonin; Complete Time: 11:05 [facility] 01/08 09:34 Order name: D-Dimer; Complete Time: 10:42 [facility] 01/08 11:57 Order name: C-Reactive Protein [facility] 01/08 11:57 Order name: C-Reactive Protein [facility] 01/08 11:57 Order name: CBC with Automated Diff [facility] 01/08 09:34 Order name: XRAY Chest (1 view); Complete Time: 10:06 [facility] 01/08 09:34 Order name: EKG; Complete Time: 09:35 [facility] 01/08 10:56 Order name: CT Chest For PE Angio; Complete Time: 12:07 [facility] 01/08 11:57 Order name: CONS Pharmacy Consult [facility] 01/08 11:57 Order name: CONS Physician Consult [facility] 01/08 11:57 Order name: CBC with Automated Diff [facility] 01/08 11:57 Order name: Comprehensive Metabolic Panel [facility] 01/08 11:57 Order name: Comprehensive Metabolic Panel [facility] 01/08 11:57 Order name: D-Dimer [facility] 01/08 11:58 Order name: D-Dimer [facility] 01/08 11:58 Order name: Ferritin [facility] 01/08 11:58 Order name: Ferritin [facility] 01/08 11:58 Order name: Lipid Profile [facility] 01/08 11:58 Order name: Lipid Profile [facility] 01/08 09:34 Order name: Cardiac monitoring; Complete Time: 09:57 [facility] 01/08 09:34 Order name: EKG - Nurse/Tech; Complete Time: 10:26 [facility] 01/08 09:34 Order name: IV Saline Lock; Complete Time: 10:26 [facility] 01/08 09:34 Order name: Labs collected and sent; Complete Time: 10:26 [facility] 01/08 09:34 Order name: O2 Per Protocol; Complete Time: 09:57 [facility] 01/08 09:34 Order name: O2 Sat Monitoring; Complete Time: 09:57 [facility] 01/08 11:57 Order name: Regular EDMS Administered Medications: 12:27 Drug: NS 0.9% 500 ml Route: IV; Rate: bolus; Site: left hand; em 14:31 Follow up: IV Status: Completed infusion; IV Intake: 500ml em 12:27 Drug: Decadron - Dexamethasone 10 mg Route: IVP; Site: left hand; em 14:31 Follow up: Response: No adverse reaction em Disposition: 18:58 Co-signature as Attending Physician, Darian Willett MD. rn Disposition: 01/09/20 11:08 Hospitalization ordered by Kiara Skaggs for Observation. Preliminary diagnosis are Other viral pneumonia, Hypoxia. - Bed requested for Intensive Care Unit. - Status is Observation. em - Condition is Stable. - Problem is new. - Symptoms are unchanged. Signatures: Dispatcher [employer] EDMS Jazmyn Glover Hiram Garcia PA PA [facility] Mauricio Silva, RN RN em Darian Willett MD MD rn Smirch, Shelby, RN RN ss Corrections: (The following items were deleted from the chart) 12:10 09:31 This is a 69 year old female with a history of dm, htn, that presents to the ED [facility] with complaints of. [facility] 15:06 11:08 Hospitalization Ordered by Kiara Skaggs MD for Observation. Preliminary bd diagnosis is Other viral pneumonia; Hypoxia. Bed requested for Telemetry/MedSurg (observation). Status is Observation. Condition is Stable. Problem is new. Symptoms are unchanged. [facility] 16:24 15:06 01/09/2020 11:08 Hospitalization Ordered by Kiara Skaggs MD for Observation. em Preliminary diagnosis is Other viral pneumonia; Hypoxia. Bed requested for Intensive Care Unit. Status is Observation. Condition is Stable. Problem is new. Symptoms are unchanged. bd
[2020-01-09] MEDS ORDERED: NA CHLORIDE 0.9% 500 ML ONE (11:50)
[2020-01-09] MEDS ORDERED: ACETAMINOPHEN 500 MG TAB PO PRN (11:53)
[2020-01-09] MEDS ORDERED: ONDANSETRON 4 MG/2 ML VIAL IV PRN (11:53)
--- NOTE | 2020-01-09 11:59 | P.HP ---
Certification for Inpatient Patient admitted to: Inpatient With expected LOS: >2 Midnights Patient will require the following post-hospital care: None Practitioner: I am a practitioner with admitting privileges, knowledge of patient current condition, hospital course, and medical plan of care. Services: Services provided to patient in accordance with Admission requirements found in Title 42 Section 412.3 of the Code of Federal Regulations Patient History Date of Service: 01/09/20 Reason for admission: COVID-19 pneumonia History of Present Illness: Patient is a 69-year-old female who came to the hospital with shortness of breath. She had been tachypneic for the last few days and she couldn't really catch her breath. She came to the emergency room and she was found to be hypoxic with oxygen saturations in the 80 percentile. She was started on 2 L of oxygen and her O2 sats improved into the 90s. Her chest x-ray revealed bilateral pulmonary infiltrates. In the ER they did COVID-19 testing and it came back positive. She is clinically feeling much better. However, we do remove the oxygen her saturations decrease into the 80s. She will be admitted to the hospital for further treatment and evaluation. She does have a past medical history of hypertension and diabetes. She will be monitored very closely. Allergies No Known Allergies Allergy (Verified 12/30/15 08:43) Home Medications: Atorvastatin Calcium [Lipitor*] 1 tab PO DAILY 01/09/20 Esomeprazole Mag Trihydrate [Nexium] 1 tab PO DAILY 01/09/20 Levothyroxine Sodium 1 tab PO DAILY 01/09/20 Metformin HCl [Glucophage*] 1 tab PO BIDWM 01/09/20 Pregabalin [Lyrica] 75 mg PO DAILY 01/09/20 Triamterene/Hydrochlorothiazid [Triamterene-Hctz 37.5-25 mg Tb] 1 tab PO DAILY 01/09/20 - Past Medical/Surgical History Diabetic: Yes -: Diabetes mellitus type 2 -: Hypertension -: Hypothyroidism -: GERD -: Allergies -: Obesity -: Cataract surgery -: Lens transplant Psychosocial/ Personal History: She is to 43 years, has 2 children, she does not work. - Family History Mother Medical History: Hypertension, Other (see notes) Notes: osteoporosis - Social History Smoking Status: Never smoker Alcohol use: No CD- Drugs: No Caffeine use: No Review of Systems 10-point ROS is otherwise unremarkable Physical Examination - Vital Signs Temperature: 98.9 F Blood Pressure: 140/80 Pulse: 80 Respirations: 18 Pulse Ox (%): 95 - Physical Exam General: Alert, In no apparent distress, Oriented x3 HEENT: Atraumatic, PERRLA, Mucous membr. moist/pink, EOMI, Sclerae nonicteric Neck: Supple, 2+ carotid pulse no bruit, No LAD, Without JVD or thyroid abnormality Respiratory: Clear to auscultation bilaterally, Normal air movement Cardiovascular: Regular rate/rhythm, Normal S1 S2, No murmurs Gastrointestinal: Normal bowel sounds, Soft and benign, Non-distended, No tenderness Musculoskeletal: No clubbing, No swelling, No tenderness Integumentary: No rashes Neurological: Normal gait, Normal speech, Normal strength at 5/5 x4 extr, Normal tone, Sensation intact, Cranial nerves 3-12 intact, Normal affect Lymphatics: No axilla or inguinal lymphadenopathy - Studies Laboratory Data (last 24 hrs) 01/09/20 10:10: PT 13.7 H, INR 1.16 01/09/20 10:10: Sodium 134 L, Potassium 3.4 L, BUN 30 H, Creatinine 1.37 H, Glucose 141 H, Magnesium 1.8, Total Bilirubin 0.8, AST 19, ALT 19, Alkaline Phosphatase 45 01/09/20 10:08: WBC 4.2 L, Hgb 12.2, Hct 35.4 L, Plt Count 115 L Assessment & Plan - Problems (Diagnosis) (1) Pneumonia due to COVID-19 virus Current Visit: Yes Status: Acute (2) Hypoxemia Current Visit: Yes Status: Acute (3) Diabetes mellitus Onset Date: 12/31/15 Current Visit: No Status: Chronic Qualifiers: Diabetes mellitus type: type 2 Diabetes mellitus production administrator insulin use: without production administrator use Diabetes mellitus complication status: without complication Qualified Code(s): E11.9 - Type 2 diabetes mellitus without complications (4) GERD (gastroesophageal reflux disease) Onset Date: 12/31/15 Current Visit: No Status: Chronic Qualifiers: Esophagitis presence: esophagitis presence not specified Qualified Code(s): K21.9 - Gastro-esophageal reflux disease without esophagitis (5) Hypertension Onset Date: 12/31/15 Current Visit: No Status: Chronic Qualifiers: Hypertension type: essential hypertension Qualified Code(s): I10 - Essential (primary) hypertension (6) Hypothyroidism Onset Date: 12/31/15 Current Visit: No Status: Chronic Qualifiers: Hypothyroidism type: unspecified Qualified Code(s): E03.9 - Hypothyroidism, unspecified - Plan 1. Continue with IV antibiotics 2. COVID-19 pneumonia 3. Repeat chest x-ray is symptoms are progressively worsening 4. O2 per protocol 5. Pulmonary consultation 6. Continue with albuterol inhaler therapy; IV steroids; zinc and vitamin-C 7. O2 per protocol 8. Monitor LFTs 9. Repeat labs including D-dimer, ferritin, and CRP and LFTs 10. Continue with strict blood sugar and blood pressure control 11. GI and DVT prophylaxis Discharge Plan: Home Plan to discharge in: Greater than 2 days - Advance Directives Does patient have a Living Will: No Does patient have a Durable POA for Healthcare: No - Code Status/Comfort Care Code Status Assessed: Yes Code Status: Full Code Critical Care: No Time Spent Managing PTS Care (In Minutes): 40
--- NOTE | 2020-01-09 12:03 | RAD REPORT ---
EXAM DESCRIPTION: CT - Chest For Pe Angio - 01/09/2020 11:49 am CLINICAL HISTORY: Chest pain COMPARISON: 2016 TECHNIQUE: Dynamically enhanced axial 3 mm thick images of the chest were obtained during administra tion of <100> mL Isovue 370 IV contrast. Coronal and oblique reconstruction images were generated and reviewed. Exam utilizes a protocol for optimal evaluation of pulmonary arterial tree. Maximum intensity projections 3D imaging was utilized All CT scans are performed using dose optimization technique as appropriate and may include automated exposure control or mA/KV adjustment according to patient size. FINDINGS: A pulmonary embolus is not seen. A thoracic aortic aneurysm is not noted. A pleural effusion is not seen. A pericardial effusion is not seen. Mild to moderate bilateral patchy lung opacities some of which are ground-glass IMPRESSION: Negative for a pulmonary embolism. Mild to moderate bilateral patchy lung opacities may indicate Covid pneumonia
[2020-01-09] MEDS ORDERED: dexAMETHasone 4 MG/ML VIAL ONE (12:27)
[2020-01-09] MEDS ORDERED: NA CHLORIDE 0.9% 250 ML IV ONE (18:00)
[2020-01-09] MEDS ORDERED: INFLUENZA VACCINE (for 3y+) 0.5 ML DOSE IMVAC ONE (18:00)
[2020-01-09] MEDS ORDERED: PNEUMOCOCCAL VACCINE 0.5 ML IMVAC ONE (18:00)
[2020-01-09] MEDS: NA CHLORIDE 0.9% 1,000 ML IV SCH (18:17)
[2020-01-09] MEDS: APIXABAN 5 MG TABLET PO SCH (21:32)
[2020-01-09] MEDS: METHYLPREDNISOLONE 125 MG INJ IV SCH (21:32)
[2020-01-09] MEDS ORDERED: WATER FOR INJ,STERILE 10 ML ONE (21:41)
[2020-01-10 05:08] LABS: Absolute Lymphocytes (CBC) 0.3 K/uL (0.7-4.9); Hematocrit 34.1 % (36.0-45.0); Lymphocytes % 8.1 % (15.3-44.8); MPV 8.9 fL (7.6-11.3); RBC Red Blood Cell Count 3.64 M/uL (3.86-4.86)
[2020-01-10 05:26] LABS: Albumin 2.7 g/dL (3.4-5.0); Bilirubin Total 0.5 mg/dL (0.2-1.0); Ferritin 1530.4 ng/mL (8-388); Potassium 3.5 mmol/L (3.5-5.1); Protein, Total 6.5 g/dL (6.4-8.2)
[2020-01-10 06:00] VITALS: BMI 28.3
[2020-01-10 06:17] LABS: Blood Morphology Comment NOT SEEN (NOT SEEN); Platelet Estimate DECR
[2020-01-10] MEDS: NA CHLORIDE 0.9% 1,000 ML IV SCH (07:19)
--- NOTE | 2020-01-10 07:55 | P.PN ---
Subjective Date of Service: 01/10/20 Chief Complaint: COVID-19 pneumonia Physical Examination - Vital Signs Temperature: 98.9 F Blood Pressure: 140/80 Pulse: 80 Respirations: 18 Pulse Ox (%): 95 - Studies Laboratory Data (last 24 hrs) 01/09/20 10:10: PT 13.7 H, INR 1.16 01/09/20 10:10: Sodium 134 L, Potassium 3.4 L, BUN 30 H, Creatinine 1.37 H, Glucose 141 H, Magnesium 1.8, Total Bilirubin 0.8, AST 19, ALT 19, Alkaline Phosphatase 45 01/09/20 10:08: WBC 4.2 L, Hgb 12.2, Hct 35.4 L, Plt Count 115 L Assessment & Plan - Problems (Diagnosis) (1) Pneumonia due to COVID-19 virus Current Visit: Yes Status: Acute (2) Hypoxemia Current Visit: Yes Status: Acute (3) Diabetes mellitus Onset Date: 12/31/15 Current Visit: No Status: Chronic Qualifiers: Diabetes mellitus type: type 2 Diabetes mellitus custodial insulin use: without custodial use Diabetes mellitus complication status: without complication Qualified Code(s): E11.9 - Type 2 diabetes mellitus without complications (4) GERD (gastroesophageal reflux disease) Onset Date: 12/31/15 Current Visit: No Status: Chronic Qualifiers: Esophagitis presence: esophagitis presence not specified Qualified Code(s): K21.9 - Gastro-esophageal reflux disease without esophagitis (5) Hypertension Onset Date: 12/31/15 Current Visit: No Status: Chronic Qualifiers: Hypertension type: essential hypertension Qualified Code(s): I10 - Essential (primary) hypertension (6) Hypothyroidism Onset Date: 12/31/15 Current Visit: No Status: Chronic Qualifiers: Hypothyroidism type: unspecified Qualified Code(s): E03.9 - Hypothyroidism, unspecified - Plan 1. Continue with IV antibiotics 2. COVID-19 pneumonia 3. Repeat chest x-ray is symptoms are progressively worsening 4. O2 per protocol 5. Pulmonary consultation 6. Continue with albuterol inhaler therapy; IV steroids; zinc and vitamin-C 7. O2 per protocol 8. Monitor LFTs 9. Repeat labs including D-dimer, ferritin, and CRP and LFTs 10. Continue with strict blood sugar and blood pressure control 11. GI and DVT prophylaxis - Advance Directives Does patient have a Living Will: No Does patient have a Durable POA for Healthcare: No - Code Status/Comfort Care Code Status: Full Code
[2020-01-10] MEDS: METHYLPREDNISOLONE 125 MG INJ IV SCH (08:00)
[2020-01-10] MEDS: APIXABAN 5 MG TABLET PO SCH (08:00)
--- NOTE | 2020-01-10 12:20 | P.CNS ---
Date of Consult: 01/10/20 Chief Complaint: COVID-19 pneumonia History of Present Illness: Patient is 69 years of age admitted with shortness of breath mauricio virus pneumonia which is tested positive recently she is ill hypoxic this morning patient is doing well she is alert responsive speaks very little [place] his saturation is satisfactory on oxygen history of diabetes hypertension Allergies No Known Allergies Allergy (Verified 12/30/15 08:43) Home Medications: Atorvastatin Calcium [Lipitor*] 1 tab PO DAILY 01/09/20 Esomeprazole Mag Trihydrate [Nexium] 1 tab PO DAILY 01/09/20 Levothyroxine Sodium 1 tab PO DAILY 01/09/20 Metformin HCl [Glucophage*] 1 tab PO BIDWM 01/09/20 Pregabalin [Lyrica] 75 mg PO DAILY 01/09/20 Triamterene/Hydrochlorothiazid [Triamterene-Hctz 37.5-25 mg Tb] 1 tab PO DAILY 01/09/20 - Past Medical/Surgical History Diabetic: Yes -: Diabetes mellitus type 2 -: Hypertension -: Hypothyroidism -: GERD -: Allergies -: Obesity -: Cataract surgery -: Lens transplant Psychosocial/ Personal History: She is to 43 years, has 2 children, she does not work. - Family History Mother Medical History: Hypertension, Other (see notes) Notes: osteoporosis - Social History Alcohol use: No CD- Drugs: No Caffeine use: No Place of Residence: Home Review of Systems is unable to be obtained Physical Examination Temp Pulse Resp BP Pulse Ox 97.2 F 80 24 H 127/65 98 01/10/20 08:00 01/10/20 08:00 01/10/20 08:00 01/10/20 08:00 01/10/20 08:00 General: Alert, Cooperative Respiratory: Clear to auscultation bilaterally Cardiovascular: No edema, Normal S1 S2 - Problems (1) Pneumonia due to COVID-19 virus Current Visit: Yes Status: Acute Plan: Patient is 69 years of age admitted with pneumonia due to mauricio virus ABS chemistries reviewed agree with antibiotics and steroids recommend discharge home on prednisone 20 b.i.d. for 2 weeks will taper as an outpatient continue with full anticoagulation Dc IV fluids stable for discharge
[2020-01-10 15:16] VITALS: O2SAT 93
[2020-01-10 15:52] VITALS: TEMP 97
[2020-01-10 17:13] VITALS: BP 107/77
== END 2020-01-10 17:51 | disposition home or self-care (01) | DRG 177 ==
LOC: ER 09:07 → INTOOBSV 12:18 → OBSVTOIN 12:18 → ERHOLD 12:18 → 3RD-ICU 16:08
PROVIDERS: ADMIT Hospitalist; ATTEND Hospitalist
DX: U07.1 COVID-19 (principal); J12.89 Other viral pneumonia; E11.9 Type 2 diabetes mellitus without complications; E03.9 Hypothyroidism, unspecified; K21.9 Gastro-esophageal reflux disease without esophagitis; I10 Essential (primary) hypertension; R09.02 Hypoxemia; Z79.890 Hormone replacement therapy; Z79.84 Long term (current) use of oral hypoglycemic drugs; Z79.899 Other long term (current) drug therapy
CPT/HCPCS: 36415; 71045; 71275; 80048; 80053; 80061; 80076; 82728; 83605; 83735; 83880; 84145; 84484; 85025; 85379; 85610; 86140; 87040; 93005; 94760; 96361; 96374; 99285; J1100; J2930; J7030; J7040; J7050; Q9967; U0003

== ENCOUNTER 2021-03-05 17:34 | Emergency (ER) | payer OTHER ==
--- OUTSIDE RECORDS SUMMARY | 2021-03-05 17:37 | XMS REPORT | Continuity of Care Document ---
:1950 Author Organization [facility] t Address [address] [place] [address] Care Team Providers Name Role Phone Unavailable Unavailable Unavailable Payers Payer Name Policy Type Policy Number Effective Date Ex[facility] Date [id number] (MEDICARE 00:00:00 REPLACEMENT HMO) Problems This patient has no known problems. Allergies, Adverse Reactions, Alerts This patient has no known allergies or adverse reactions. Medications This patient has no known medications. Procedures This patient has no known procedures. Encounters Start End Encounter Admission Attending Care Care Encounter Source Date/Time Date/Time Type Type Clinicians Facility Department ID 2021-01-01 2021-01-01 Outpatient [facility] [id number] [facility] 11:00:00 11:00:00 [id number] Results This patient has no known results.
--- NOTE | 2021-03-05 19:13 | RAD REPORT ---
EXAM DESCRIPTION: RAD - Chest Pa And Lat (2 Views) - 03/05/2021 6:55 pm CLINICAL HISTORY: COUGH COMPARISON: Portable December 2019, two view June 2017 TECHNIQUE: Frontal and lateral views of the chest were obtained. FINDINGS: The lungs are underinflated compared to 2018. No peripheral mass or consolidation. Patient has a mild baseline interstitial pattern could mask earliest stages of edema or infiltrate. Heart size is upper normal. Upper lobe vasculature within normal limits. No pleural effusion or pneumothora x seen. No acute bony finding noted. No aortic abnormality. IMPRESSION: No acute cardiopulmonary process. Patient's baseline interstitial pattern could mask early edema or infiltrate.
[2021-03-05 19:20] LABS: SARS-COV-2 RT PCR NEGATIVE (NEGATIVE)
--- NOTE | 2021-03-05 19:42 | ER ---
Nurse's Notes [facility] Name: Ct Mobley Age: 70 yrs Sex: Female : 1950 Arrival Date: 03/05/2021 Time: 17:39 Bed 24 Private MD: Darrian Montalvo E Diagnosis: Influenza due to identified novel influenza A virus Presentation: 03/05 17:46 Chief complaint: Patient states: Cough for 5 days. Saw her PCP, covid was negative. ll1 Given cough medicine, that helped. But feel weak and fatigued again for the past two days. No fevers. Coronavirus screen: Vaccine status: Patient reports receiving the 2nd dose of the covid vaccine. Client denies travel out of the [place] in the last 14 days. cough unrelated to allergies, fatigue, nausea, Client presents with at least one sign or symptom that may indicate coronavirus-19. Standard/surgical mask placed on the client. Ebola Screen: Patient denies travel to an Ebola-affected area in the 21 days before illness onset. No symptoms or risks identified at this time. Initial Sepsis Screen: Does the patient meet any 2 criteria? No. Patient's initial sepsis screen is negative. Does the patient have a suspected source of infection? Yes: Productive cough/pneumonia. Risk Assessment: Do you want to hurt yourself or someone else? Patient reports no desire to harm self or others. Onset of symptoms was February 28, 2021. 17:46 Method Of Arrival: Ambulatory ll1 17:46 Acuity: JASE 3 ll1 Historical: - Allergies: 17:48 No Known Allergies; ll1 - PMHx: 17:48 Thyroid problem; Hypertension; Diabetes - NIDDM; ll1 - PSHx: 17:48 None; ll1 - Immunization history:: Client reports receiving the 2nd dose of the Covid vaccine. - Social history:: Smoking status: Patient denies any tobacco usage or history of. Screenin:25 Abuse screen: Denies threats or abuse. Denies injuries from another. Nutritional iw screening: No deficits noted. Tuberculosis screening: No symptoms or risk factors identified. Fall Risk None identified. Assessment: 18:24 General: Appears in no apparent distress. Behavior is calm, cooperative. Pain: Denies iw pain. Neuro: Level of Consciousness is awake, alert, obeys commands, Oriented to person, place, time, situation, Moves all extremities. Full function. Respiratory: Reports cough that is Respiratory effort is even, unlabored, Respiratory pattern is regular, symmetrical. Derm: Skin is pink, warm \T\ dry. Vital Signs: 17:46 BP 148 / 85; Pulse 87; Resp 17; Temp 97.6; Pulse Ox 98% ; Weight 84.82 kg; Height 5 ft. ll1 9 in. (175.26 cm); Pain 0/10; 17:46 Body Mass Index 27.61 (84.82 kg, 175.26 cm) ll1 ED Course: 17:39 Patient arrived in ED. as 17:42 Darrian Montalvo MD is Private Physician. am2 17:48 Triage completed. ll1 17:49 Arm band placed on. ll1 17:51 Daniel Krause PA is PHCP. cp 17:51 Darian Willett MD is Attending Physician. cp 18:10 Ashlee Trejo RN is Primary Nurse. iw 18:25 No provider procedures requiring assistance completed. Patient did not have IV access iw during this emergency room visit. 18:54 XRAY Chest Pa And Lat (2 Views) In Process Unspecified. EDMS Administered Medications: No medications were administered Outcome: 19:41 Discharge ordered by MD. cp 19:51 Patient left the ED. iw Signatures: Dispatcher [employer] EDMS [place] Irene, RN RN iw Daniel Krause PA PA Adalgisa Amor am2 Aric Simms RN RN ll1
--- NOTE | 2021-03-05 19:42 | EDPHYS ---
Physician Documentation [facility] Name: Ct Mobley Age: 70 yrs Sex: Female : 1950 Arrival Date: 03/05/2021 Time: 17:39 Bed 24 Private MD: Darrian Montalvo E ED Physician Darian Willett HPI: 03/05 18:10 This 70 yrs old Female presents to ER via Ambulatory with complaints of cp General Weakness, Cough. 18:10 The patient or guardian reports cough, that is intermittent. cp 18:10 Onset: The symptoms/episode began/occurred 5 day(s) ago. cp 18:10 Associated signs and symptoms: Pertinent positives: fatigue, general weakness, cp Pertinent negatives: chest pain, diarrhea, fever, vomiting, abdominal pain. Severity of symptoms: in the emergency department the symptoms are unchanged despite home interventions. Patient reports she was seen by PCP who tested her for COVID-19 that returned negative. Historical: - Allergies: 17:48 No Known Allergies; ll1 - PMHx: 17:48 Thyroid problem; Hypertension; Diabetes - NIDDM; ll1 - PSHx: 17:48 None; ll1 - Immunization history:: Client reports receiving the 2nd dose of the Covid vaccine. - Social history:: Smoking status: Patient denies any tobacco usage or history of. ROS: 18:15 Constitutional: Positive for fatigue, Negative for fever, poor PO intake. cp 18:15 Eyes: Negative for injury, pain, redness, and discharge. cp 18:15 ENT: Negative for drainage from ear(s), ear pain, sore throat, difficulty swallowing, difficulty handling secretions. 18:15 Cardiovascular: Negative for chest pain, edema, palpitations. 18:15 Respiratory: Positive for cough, "sounds productive", Negative for shortness of breath, wheezing. 18:15 Abdomen/GI: Negative for abdominal pain, nausea, vomiting, and diarrhea. 18:15 Back: Negative for pain at rest, pain with movement. 18:15 Neuro: Positive for general weakness, Negative for altered mental status, headache. 18:15 All other systems are negative. Exam: 18:20 Constitutional: The patient appears in no acute distress, alert, awake, non-toxic, well cp developed, well nourished. 18:20 Head/Face: Normocephalic, atraumatic. cp 18:20 Eyes: Periorbital structures: appear normal, Conjunctiva: normal, no exudate, no injection, Sclera: no appreciated abnormality, Lids and lashes: appear normal, bilaterally. 18:20 ENT: External ear(s): are unremarkable, Ear canal(s): are normal, clear, TM's: dullness, bilaterally, Nose: is normal, Mouth: Lips: moist, Oral mucosa: pink and intact, moist, Posterior pharynx: Airway: no evidence of obstruction, patent, Tonsils: are normal in appearance, erythema, is not appreciated, exudate, is not appreciated. 18:20 Neck: ROM/movement: is normal, is supple, without pain, no range of motions limitations, no meningismus, no nuchal rigidity. 18:20 Chest/axilla: Inspection: normal. 18:20 Cardiovascular: Rate: normal, Rhythm: regular, Edema: is not appreciated, JVD: is not appreciated. 18:20 Respiratory: the patient does not display signs of respiratory distress, Respirations: normal, no use of accessory muscles, no retractions, labored breathing, is not present, Breath sounds: decreased breath sounds, are not appreciated, stridor, is not appreciated, wheezing: is not appreciated. 18:20 Abdomen/GI: Exam negative for discomfort, distension, guarding, Inspection: abdomen appears normal. 18:20 Neuro: Orientation: to person, place \\T\\ time. Mentation: is normal, Motor: moves all fours, strength is normal, Sensation: is normal. Vital Signs: 17:46 BP 148 / 85; Pulse 87; Resp 17; Temp 97.6; Pulse Ox 98% ; Weight 84.82 kg; Height 5 ft. ll1 9 in. (175.26 cm); Pain 0/10; 17:46 Body Mass Index 27.61 (84.82 kg, 175.26 cm) ll1 MDM: 17:52 Patient medically screened. cp 19:00 Differential diagnosis: bronchitis, flu, URI, COVID-19, pneumonia. cp 19:40 Data reviewed: vital signs, nurses notes, lab test result(s), radiologic studies, plain cp films. 19:40 Data interpreted: Pulse oximetry: on room air is 98 %. Interpretation: normal. Plan: O2 cp by PA applied. Test interpretation: by ED physician or midlevel provider: plain radiologic studies. Counseling: I had a detailed discussion with the patient and/or guardian regarding: the historical points, exam findings, and any diagnostic results supporting the discharge/admit diagnosis, lab results, radiology results, to return to the emergency department if symptoms worsen or persist or if there are any questions or concerns that arise at home. ED course: VSS. Patient appears non-toxic and no signs of respiratory distress. Will discharge to home for continued monitoring. 03/05 18:15 Order name: COVID-19/FLU A+B (Document "Date of Onset" if Symptomatic); Complete Time: iw 19:32 03/05 19:33 Interpretation: Reviewed. cp 03/05 18:01 Order name: XRAY Chest Pa And Lat (2 Views); Complete Time: 19:21 cp 03/05 19:22 Interpretation: Report reviewed. cp Administered Medications: No medications were administered Disposition: 03/06 07:04 Co-signature as Attending Physician, Darian Willett MD I agree with the assessment and rn plan of care. Attestation: The patient's history, exam findings, diagnostics, and a summary of any interventions or procedures was reviewed in detail with Daniel PARDO. Disposition Summary: 03/05/21 19:41 Discharge Ordered Location: Home cp Problem: new cp Symptoms: are unchanged cp Condition: Stable cp Diagnosis - Influenza due to identified novel influenza A virus cp Followup: cp - With: Private Physician - When: 2 - 3 days - Reason: Worsening of condition Discharge Instructions: - Discharge Summary Sheet cp - Influenza, Adult cp Forms: - Medication Reconciliation Form cp - Thank You Letter cp - Antibiotic Education cp - Prescription Opioid Use cp Prescriptions: - Tessalon Perles 100 mg Oral Capsule - take 2 capsule by ORAL route every 8 hours As needed; 30 capsule; Refills: 0, cp Product Selection Permitted - Albuterol Sulfate 2.5 mg /3 mL (0.083 %) Inhalation Solution for Nebulization - inhale 1 unit by NEBULIZATION route every 8 hours As needed; 1 box; Refills: 0, cp Product Selection Permitted Signatures: Dispatcher [employer] Darian Salcedo MD MD rn Page, Corey, PA PA cp Lewis, Lynsay RN RN ll1
[2021-03-05 20:44] VITALS: BP 148/85; TEMP 97.6; O2SAT 98
== END 2021-03-05 19:51 | disposition home or self-care (01) ==
LOC: ER 17:34
DX: J10.1 Influenza due to other identified influenza virus with other respiratory manifestations (principal); Z20.822 Contact with and (suspected) exposure to COVID-19; I10 Essential (primary) hypertension
CPT/HCPCS: 0240U; 71046; 99282

== ENCOUNTER 2022-04-12 15:36 | Emergency (ER) | payer MEDICARE ==
--- OUTSIDE RECORDS SUMMARY | 2022-04-12 15:39 | XMS REPORT | Continuity of Care Document ---
:1950 Author Organization [facility] t Address [address] [place] [address] Care Team Providers Name Role Phone PCP, PATIENT DOES NOT HAVE A Primary Care Physician Unavaila Jackie Panchal Attending Clinician Unavailable UNKNOWN, ATTENDING Attending Clinician Unavailable Doctor Unassigned, Speculator Attending Clinician Unavailable Jackie Cowan Admitting Clinician Unavailable Payers Payer Name Policy Type Policy Number Effective Date Expiration Date S ource MEDICARE PART A \T\ [id number] 2022 B 00:00:00 [facility] [id number] 2021 (MEDICARE 00:00:00 REPLACEMENT HMO) Problems Condition Condition Condition Status Onset Resolution Last Treating Co mments Source Name Details Category Date Date Treatment Clinician Date Hypothyroi Hypothyroi Disease Active U nivers d d 3-15 ity of 00:00: [place] 00 Medical Branch Asymptomat Asymptomat Disease Active Overview : Univers ic ic 3-15 Formattin ity of postmenopa postmenopa 00:00: g of this [facility] usal 00 note Medical status status might be Branch different from the original. ICD10 Diagnosis Term Blood Typer Utility Morbid Morbid Disease Active Univers obesity obesity 3-15 ity of 00:00: [place] 00 Medical Branch Essential Essential Disease Active Overview: Univers hypertensi hypertensi 6-04 Formattin ity of on on 00:00: g of this [place] [address] note Medical might be Branch different from the original. ICD10 Diagnosis Term Blood Typer Utility Allergies, Adverse Reactions, Alerts Allergy Allergy Status Severity Reaction(s) Onset Inactive Treating Comm ents Source Name Type Date Date Clinician NO KNOWN Drug Active Univers ALLERGIE Class ity of S [facility] Social History Social Habit Start Date Stop Date Quantity Comments Source Alcohol intake 2015-08-14 2015-08-14 Current [facility] 00:00:00 00:00:00 non-drinker of [facility] alcohol [place] (finding) Sex Ass[birth year] At [birth year] Universit y of 00:00:00 00:00:00 [facility] Smoking Status Start Date Stop Date Source Never smoked tobacco [facility] Medications Ordered Filled Start Stop Current Ordering Indication Dosage Frequency Signature Comments Components Source Medication Medication Date Date Medication? Clinician (SIG) Name Name enalapril Yes 10mg Take 10 mg Un sonya (VASOTEC) 08-13 by mouth ity of 10 mg 14:54: daily. [address] Immunizations Ordered Filled Immunization Date Status Comments Sourc e Immunization Name Name TD, NOS 2005-07-27 Completed [facility] 00:00:00 [facility] Procedures Procedure Date / Time Performed Performing Clinician Stefani e ASSIGNMENT OF BENEFITS 2022-04-12 20:44:50 Doctor Unassigned, No [facility] Encounters Start End Encounter Admission Attending Care Care Encounter Source Date/Time Date/Time Type Type Clinicians Facility Department ID 2021-09-11 Inpatient [facility], [facility] [id number] [facility] 15:21:00 Jackie vaughan [facility] 2022-04-12 2022-04-12 Outpatient R UNKNOWN, [facility] [id number] Univers 15:00:00 15:00:00 ATTENDING ity of [facility] 2022-04-12 2022-04-12 Orders Doctor FARLEY [id number] Univers 00:00:00 00:00:00 Only Unassigned, SALINAS [id number] ity of [facility] [id number] Evert as [id number] [place] [address] Branch 2021-09-11 2021-09-11 Outpatient EL Monical, JESSICA ALICIA [id number] [facility] 08:00:00 08:00:00 Jackie 18 [facility] 2021-09-06 2021-09-06 Outpatient [facility] [id number] [facility] 04:14:00 04:14:00 0715 [facility] l [facility] 2021-01-01 2021-01-01 Outpatient [facility] [id number] [facility] 11:00:00 11:00:00 1109 Medica l Group Results Test Description Test Time Test Comments Results Result Comments Source SURGICAL OUTREACH 2021-09-13 18:49:00 Test Item Value Reference Range Interpretation Comme nts SURGICAL RUN DATE: OUTREACH 09/13/21 [facility] d - LAB PAGE 1 RUN TIME: 1849 Specimen Inquiry RUN USER: INTERFACE (test PATIENT: code = YOLA ROMAN 7167 LOC: JORGE Andrade #: [id number] AGE/SX: 70/F ROOM: RE09/11/21VALDEZ [place]: Jackie Roth [facility] : 50 BED: DIS: STATUS: PRE REF TLOC: SPEC #: [id number] RECD: 09/12/21-0 531 STATUS: LUDIVINA BROWN #: [id number] LIA: 09/11/21- [address]: Jackie Cowan ENTERED: SP TYPE: SURGICAL OTHR DR: ORDERED: [id number], ANATOMIC SPEC, SPECIMEN TRACK PROCEDURES: [id number] () SPECIMEN TRACK (09/12/21) TISSUES: A. BREAST BIOPSY, FEMALE RIGHT - RIGHT BREAST CALCIFI CATIONS FINAL DIAGNOSIS Breast, right, calcification at 12:00, 10 cm from nipple, stereotactic core bi opsy:- Fibrocystic changes (stromal fibrosis, ductal ectasia, usual ductal hyperplasia)- Microcalcifica tions present Comment: Negative for atypia/malignancy. Suggest clinical and image correlation. GROSS JOHN CRIPTION Right breast 12:00 10 cm from nipple. Received are 2 containers, the 1st container (calcifica tion ) consists of multiple pieces of fibrofatty tissue measuring aggregate 3 x2.5 x 0.3 cm. All as A 1. The 2nd container consists of several fragments of fibrofattytissue measuring aggregate 1.5 x 1. 2 x 0.2 cm. They are submitted entirely as A2. Excised time: 2:07 09/11/2021Formalin time: 2:10 Formalin fixation duration: >24 hours-48 hours Technical component [facility] at [id number], [place] [address] Unless gross only, the diagnosis is based upon microscopic examination.Immu nohistochemistry: This test was developed and its performancecharacteristics determined by this laborator y. It has not been approved nordoes it need approval by the [place] FDA. Appropriate positive and neg ative controlsare reviewed and judged to be acceptable. This laboratory is certified underthe Clinical Laboratory Improvement Amendments (CLIA-88) as qualified toperform high complexity clinical laborato ry testing. MICROSCOPIC DESCRIPTION Findings are incorporated into the diagnosis/comment sections. CONTINUED ON NEXT PAGE RUN DATE: 09/13/21 VICKI Lynn [facility] [email or web address] LAB PAGE 2 RUN TIME: 1848 Specimen Inquiry RUN USER: INTERFACE SPEC #: [id number] PATIENT: JESSIEYOLA #[id number] (Continued) Signed SIGNATURE ON REMEDIOS MikiEder 09/13/21 1849 END OF REPORT
--- NOTE | 2022-04-12 16:43 | RAD REPORT ---
EXAM DESCRIPTION: RAD - Chest Pa And Lat (2 Views) - 04/12/2022 4:31 pm CLINICAL HISTORY: CONGESTION COMPARISON: Chest Pa And Lat (2 Views) dated 10/08/2021; Chest Pa And Lat (2 Views) dated 03/05/2021; Chest Single View dated 01/09/2020; Chest Pa And Lat (2 Views) dated 07/22/2017 FINDINGS: Lines: None. Lungs: No evidence of edema or pneumonia. Pleural: No significant pleural effusions or pneumothorax. Cardiac: The heart size is within normal limits. Mediastinum: Within normal limits. Bones: No acute fractures. Other: None IMPRESSION: No acute cardiopulmonary disease.
[2022-04-12 16:57] LABS: SARS-COV-2 RT PCR NEGATIVE (NEGATIVE)
--- NOTE | 2022-04-12 17:03 | EDPHYS ---
Physician Documentation [facility] Name: Ct Mobley Age: 71 yrs Sex: Female : 1950 Arrival Date: 04/12/2022 Time: 15:39 Bed 12 Private MD: Darrian Montalvo E ED Physician Elbert Lowry HPI: 04/12 15:53 This 71 yrs old Female presents to ER via Ambulatory with complaints of Cough, kb Congestion. 15:53 The patient or guardian reports cough. Onset: The symptoms/episode began/occurred 5 kb day(s) ago. Severity of symptoms: At their worst the symptoms were mild, in the emergency department the symptoms are unchanged. Modifying factors: The symptoms are alleviated by nothing, the symptoms are aggravated by nothing. Associated signs and symptoms: Pertinent positives: rhinorrhea, Pertinent negatives: chest pain, diarrhea, ear ache, fever, nausea, sore throat, vomiting. The patient has not experienced similar symptoms in the past. The patient has not recently seen a physician. Historical: - Allergies: 15:49 No Known Allergies; aa5 - PMHx: 15:49 Diabetes - NIDDM; Hypertension; Thyroid problem; aa5 - Immunization history:: Adult Immunizations unknown. - Social history:: Smoking status: Patient denies any tobacco usage or history of. ROS: 15:53 Constitutional: Negative for fever, chills, and weight loss. kb 15:53 ENT: Positive for rhinorrhea, sinus congestion. 15:53 Respiratory: Positive for cough. 15:53 All other systems are negative. Exam: 15:53 Constitutional: This is a well developed, well nourished patient who is awake, alert, kb and in no acute distress. Head/Face: Normocephalic, atraumatic. ENT: Moist Mucous membranes Cardiovascular: Regular rate and rhythm with a normal S1 and S2. No gallops, murmurs, or rubs. No pulse deficits. Respiratory: Respirations even and unlabored. No increased work of breathing. Talking in full sentences Skin: Warm, dry with normal turgor. Normal color. MS/ Extremity: Pulses equal, no cyanosis. Neurovascular intact. Full, normal range of motion. Neuro: Awake and alert, GCS 15, oriented to person, place, time, and situation. Moves all extremities. Normal gait. Vital Signs: 15:48 BP 147 / 82; Pulse 82; Resp 18 S; Temp 98.0(TE); Pulse Ox 98% on R/A; Weight 88 kg (R); aa5 Height 5 ft. 9 in. (175.26 cm) (R); 15:48 Body Mass Index 28.65 (88.00 kg, 175.26 cm) aa5 MDM: 15:47 Patient medically screened. 15:52 Data reviewed: vital signs, nurses notes. ED course: Patient is 71-year-old female who kb presents for cough and congestion that started 5 days ago. Denies fever. Reports congestion started in sinuses and has moved into the chest so she wanted to come in to make sure she did not have pneumonia because she has had a before. No abnormalities on physical exam, lungs clear throughout, respirations even and unlabored. Oxygen saturation 98% on room air. No increased work of breathing. Will obtain COVID and flu test as well as chest x-ray to rule out pneumonia.. 15:53 Differential Diagnosis: Bronchitis Influenza Upper Respiratory Infection. kb 17:02 Counseling: I had a detailed discussion with the patient and/or guardian regarding: the kb historical points, exam findings, and any diagnostic results supporting the discharge/admit diagnosis, lab results, radiology results, the need for outpatient follow up, a family practitioner, to return to the emergency department if symptoms worsen or persist or if there are any questions or concerns that arise at home. 04/12 15:58 Order name: COVID-19/FLU A+B/RSV 04/12 16:57 Order name: COVID-19/FLU A+B/RSV; Complete Time: 17:02 EDMS 04/12 15:58 Order name: Chest Pa And Lat (2 Views) XRAY 04/12 16:44 Order name: RAD; Complete Time: 16:46 EDMS Administered Medications: No medications were administered Disposition: 18:39 Co-signature as Attending Physician, Elbert Lowry MD I reviewed the patient's care rt provided by the Advanced Practice Provider and agree with the diagnosis and treatment plan. Disposition Summary: 04/12/22 17:02 Discharge Ordered Location: Home Condition: Stable Diagnosis - Acute upper respiratory infection, unspecified kb Followup: kb - With: Emergency Department - When: As needed - Reason: Worsening of condition Followup: kb - With: Private Physician - When: 2 - 3 days - Reason: Recheck today's complaints, Continuance of care, Re-evaluation by your physician Discharge Instructions: - Discharge Summary Sheet kb - Upper Respiratory Infection, Adult, [id number]-zn-[id number] kb - Viral Respiratory Infection, Yasl-Ts-Lumg kb Forms: - Medication Reconciliation Form kb - Thank You Letter kb - Antibiotic Education kb - Prescription Opioid Use kb Prescriptions: - Tessalon Perles 100 mg Oral Capsule - take 1 capsule by ORAL route every 8 hours As needed; 15 capsule; Refills: 0, kb Product Selection Permitted Signatures: Dispatcher [employer] EDMS Renetta Street, CHOREOGRAPHY DIRECTOR-C CHOREOGRAPHY DIRECTOR-Karena Rodriguez, RN RN aa5 Elbert Lowry MD MD rt
--- NOTE | 2022-04-12 17:03 | ER ---
Nurse's Notes [facility] Name: Ct Mobley Age: 71 yrs Sex: Female : 1950 Arrival Date: 04/12/2022 Time: 15:39 Bed 12 Private MD: Darrian Montalvo E Diagnosis: Acute upper respiratory infection, unspecified Presentation: 04/12 15:48 Chief complaint: Patient states: nasal drainage and congestion since Thursday, pt now aa5 reports chest congestion coughing up green sputum. Pt denies fever, reports hx of Pneumonia. Coronavirus screen: congestion, cough unrelated to allergies. Ebola Screen: Patient denies travel to an Ebola-affected area in the 21 days before illness onset. Initial Sepsis Screen: Does the patient meet any 2 criteria? No. Patient's initial sepsis screen is negative. Does the patient have a suspected source of infection? No. Patient's initial sepsis screen is negative. Risk Assessment: Do you want to hurt yourself or someone else? Patient reports no desire to harm self or others. Onset of symptoms was March 2022. 15:48 Acuity: JASE 3 aa5 15:48 Method Of Arrival: Ambulatory aa5 Historical: - Allergies: 15:49 No Known Allergies; aa5 - PMHx: 15:49 Diabetes - NIDDM; Hypertension; Thyroid problem; aa5 - Immunization history:: Adult Immunizations unknown. - Social history:: Smoking status: Patient denies any tobacco usage or history of. Assessment: 17:15 Reassessment: Patient is alert, oriented x 3, equal unlabored respirations, skin aa5 warm/dry/pink. Vital Signs: 15:48 BP 147 / 82; Pulse 82; Resp 18 S; Temp 98.0(TE); Pulse Ox 98% on R/A; Weight 88 kg (R); aa5 Height 5 ft. 9 in. (175.26 cm) (R); 15:48 Body Mass Index 28.65 (88.00 kg, 175.26 cm) aa5 ED Course: 15:39 Patient arrived in ED. am2 15:39 Darrian Montalvo MD is Private Physician. am2 15:[address] FNP-C is [facility]. kb 15:39 Elbert Lowry MD is Attending Physician. kb 15:48 Arm band placed on. aa5 15:49 Triage completed. aa5 17:15 No provider procedures requiring assistance completed. Patient did not have IV access aa5 during this emergency room visit. Administered Medications: No medications were administered Outcome: 17:02 Discharge ordered by . kb 17:15 Discharged to home ambulatory, with family. aa5 17:15 Condition: stable 17:15 Discharge instructions given to patient, Instructed on discharge instructions, follow up and referral plans. medication usage, Demonstrated understanding of instructions, follow-up care, medications, Prescriptions given X 1. 17:15 Patient left the ED. aa5 Signatures: Renetta Street, FORMING MACHINE ADJUSTER-C FORMING MACHINE ADJUSTER-Karena Rodriguez RN RN aa5 Adalgisa Bertrand am2 Corrections: (The following items were deleted from the chart) 15:51 15:48 Chief complaint: Patient states: nasal drainage and congestion since Thursday, pt aa5 now reports chest congestion. Pt denies fever, reports hx of Pneumonia. aa5
[2022-04-12 17:27] VITALS: BP 147/82; TEMP 98; O2SAT 98
== END 2022-04-12 17:15 | disposition home or self-care (01) ==
LOC: ER 15:36
DX: J06.9 Acute upper respiratory infection, unspecified (principal); Z20.822 Contact with and (suspected) exposure to COVID-19; E11.9 Type 2 diabetes mellitus without complications; I10 Essential (primary) hypertension
CPT/HCPCS: 0241U; 71046; 99282

== ENCOUNTER 2023-01-08 11:24 | Observation (INO) | payer MEDICARE ==
[2023-01-05 14:42] LABS: Absolute Lymphocytes (CBC) 1.5 K/uL (0.7-4.9); Lymphocytes % 25.1 % (15.3-44.8); MCV 97.3 fL (80-100); MPV 10.1 fL (7.6-11.3); Platelets 140 thou/uL (152-406)
[2023-01-05 14:44] LABS: Protime INR 1.12
[2023-01-05 14:45] LABS: Specific Gravity 1.016 (1.005-1.030); Urine Bacteria 20-50 /HPF (<20); Urine Bilirubin NEGATIVE (Negative); Urine Blood Negative (Negative); Urine Clarity Extremely Turbid (Clear); Urine Color Yellow (Yellow); Urine Crystals Unidentified Few /HPF (None Seen); Urine Glucose NEGATIVE (Negative); Urine Mucus 1+ /HPF (None Seen); Urine Protein TRACE (Negative); Urine RBC <5 /HPF (None Seen); Urine Urobilinogen Normal (Normal); Urine pH 5.5 (5.0-7.0)
[2023-01-05 14:52] LABS: Potassium 3.4 mEq/L (3.5-5.1)
--- NOTE | 2023-01-07 17:29 | EKG ---
Test Date: 2023-01-05 Test Time: 14:39:34 Environmental Permitting Specialist: KAREN MEASUREMENT RESULTS: Intervals: Rate: 69 TN: 198 QRSD: 88 QT: 424 QTc: 454 [place]: P: 51 TN: 198 QRS: 8 T: 21 INTERPRETIVE STATEMENTS: Normal sinus rhythm Normal ECG Compared to ECG 01/09/2020 10:19:36 Left ventricular hypertrophy no longer present Electronically Signed On 01-07-23 17:23:06 SKI MOLDER by Dustin Ramey
[2023-01-08] MEDS ORDERED: SCOPOLAMINE HYDROBROMIDE PATCH TD ONE (11:52)
[2023-01-08] MEDS ORDERED: CEFAZOLIN SODIUM 2 GM/VIAL ONE ×2 (11:52→12:52)
[2023-01-08] MEDS ORDERED: NA CHLORIDE 0.9% 1,000 ML ONE ×2 (11:52→14:29)
[2023-01-08] MEDS ORDERED: FENTANYL CITR 100 MCG/2 ML ONE (12:50)
[2023-01-08] MEDS ORDERED: propofoL 200 MG/20 ML VIAL IV ONE (12:51)
[2023-01-08] MEDS ORDERED: ONDANSETRON 4 MG/2 ML VIAL ONE (12:51)
[2023-01-08] MEDS ORDERED: LIDOCAINE 2% MPF 5 ML VIAL ONE (12:51)
[2023-01-08] MEDS ORDERED: ROCURONIUM 50 MG/5 ML VIAL IV ONE (12:51)
[2023-01-08] MEDS ORDERED: VASOPRESSIN 20 UNIT/ML VIAL ONE (12:52)
[2023-01-08] MEDS ORDERED: NA CHLORIDE 0.9% 100 ML ONE (12:52)
[2023-01-08] MEDS ORDERED: VECURONIUM 10 MG/VIAL IV ONE (14:00)
[2023-01-08] MEDS ORDERED: ESMOLOL HCL 10 ML IV ONE (15:15)
[2023-01-08] MEDS ORDERED: NEOSTIGMINE 1 MG/ML -10 ML VIAL ONE (15:25)
[2023-01-08] MEDS ORDERED: GLYCOPYRROLATE 0.2 MG/ML SYR ONE (15:25)
[2023-01-08] MEDS: HYDROMORPHONE HCL 1 MG/ML INJ ONE ×2 (15:52→15:57)
[2023-01-08] MEDS ORDERED: ACETAMINOPHEN 325 MG TABLET PO PRN (16:30)
[2023-01-08] MEDS ORDERED: PROMETHAZINE 25 MG TABLET PO PRN (16:31)
[2023-01-08] MEDS ORDERED: PROMETHAZINE INJ 25 MG/ML AMP IV PRN (16:31)
[2023-01-08] MEDS ORDERED: MORPHINE 2 MG/ML SYR IV PRN (16:32)
[2023-01-08 16:40] VITALS: O2SAT 99
--- OUTSIDE RECORDS SUMMARY | 2023-01-08 17:34 | XMS REPORT | Continuity of Care Document ---
:1950 Author Organization [facility] t Address [address] [place] [address] Care Team Providers Name Role Phone PCP, PATIENT DOES NOT HAVE A Primary Care Physician Unavaila Jackie Panchal Attending Clinician Unavailable KAREN_GCBZW_Kasohaila_S Attending Clinician Unavailable UNKNOWN, ATTENDING Attending Clinician Unavailable Doctor Unassigned, [place] Attending Clinician Unavailable Jackie Cowan Admitting Clinician Unavailable KAREN_GCKristenZW_Mohamuda_S Admitting Clinician Unavailable Payers Payer Name Policy Type Policy Number Effective Date Expiration Date [facility] [id number] 2021 (MEDICARE 00:00:00 REPLACEMENT HMO) MEDICARE PART A \T\ [id number] 2022 B 00:00:00 Problems Condition Condition Condition Status Onset Resolution Last Treating Co mments Source Name Details Category Date Date Treatment Clinician Date Hypothyroi Hypothyroi Disease Active U nivers d d 3-15 ity of 00:00: [place] 00 Medical Branch Asymptomat Asymptomat Disease Active Overview : Univers ic ic 3-15 Formattin ity of postmen[place] postmenopa 00:00: g of this [facility] usa 00 note Medical status status might be Branch different from the original. 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 hypertensi hypertensi 6-04 Formattin ity of on on 00:00: g of this [place] note Medical might be Branch different from the original. ICD10 Diagnosis Term Vault Attendant Utility Allergies, Adverse Reactions, Alerts Allergy Allergy Status Severity Reaction(s) Onset Inactive Treating Comm ents Source Name Type Date Date Clinician NO KNOWN Drug Active [facility] ALLERGIE Class ity of S [facility] Social History Social Habit Start Date Stop Date Quantity Comments Source Alcohol intake 2015-08-14 2015-08-14 Current University of 00:00:00 00:00:00 non-drinker of [facility] alcohol Branch (finding) Sex Assigned At [birth year] Universit y of 00:00:00 00:00:00 [facility] Smoking Status Start Date Stop Date Source Never smoked tobacco [facility] Medications Ordered Filled Start Stop Current Ordering Indication Dosage Frequency Signature Comments Components Source Medication Medication Date Date Medication? Clinician (SIG) Name Name enalapril Yes 10mg Take 10 mg Un sonya (VASOTEC) 6-21 by mouth ity of 10 mg 14:54: daily. [place] tablet [facility] Procedures Procedure Date / Time Performed Performing Clinician Stefani severino ASSIGNMENT OF BENEFITS 2022-04-12 20:44:50 Doctor Unassigned, No [facility] Branch Encounters Start End Encounter Admission Attending Care Care Encounter Source Date/Time Date/Time Type Type Clinicians Facility Department ID 2021-09-11 Inpatient [facility], [facility] [id number] [facility] 15:21:00 Jackie Epperson [facility] antwan [facility] 2023-01-03 2023-01-03 Outpatient GC_GCBZW_Ka PRIV PRIV [id number] [facility] 00:00:00 00:00:00 diyala_S [id number] Medic al 2022-12-03 2022-12-03 Outpatient GC_GCBZW_Ka PRIV PRIV [id number] [facility] 00:00:00 00:00:00 diyala_S [id number] Medic al 2022-11-19 2022-11-19 Outpatient GC_GCBZW_Ka PRIV PRIV [id number] [facility] 00:00:00 00:00:00 diyala_S [id number] Medic al 2022-11-19 2022-11-19 Outpatient GC_GCBZW_Ka PRIV PRIV [id number] [facility] 00:00:00 00:00:00 diyala_S [id number] Medic al 2022-11-15 2022-11-15 Outpatient GC_GCBZW_Ka PRIV PRIV [id number] [facility] 00:00:00 00:00:00 diyala_S [id number] Medic al 2022-10-08 2022-10-08 Outpatient GC_GCBZW_Ka PRIV PRIV [id number] [facility] 00:00:00 00:00:00 diyala_S [id number] Medic al 2022-09-29 2022-09-29 Outpatient GC_GCBZW_Ka PRIV PRIV [id number] [facility] 00:00:00 00:00:00 diyala_S [id number] Medic al 2022-04-12 2022-04-12 Outpatient R UNKNOWN, [facility] [id number] Univers 15:00:00 15:00:00 ATTENDING ity of [facility] 2022-04-12 2022-04-12 Orders Doctor FARLEY [id number] Univers 00:00:00 00:00:00 Only Unassigned, SALINAS 350.1.13.10 ity of [place] [facility] [id number] Evert as [id number] [address] 2021-09-11 2021-09-11 Outpatient DRAGAN Cowan, [facility] [id number] [facility] 08:00:00 08:00:00 Jackie Zepeda [facility] [place] 2021-09-06 2021-09-06 [facility] [id number] [facility] 04:14:00 04:14:00 0715 [facility] 2021-09-06 2021-09-06 [place] [id number] [facility] 00:00:00 00:00:00 0506 [facility] 2021-01-01 2021-01-01 Outpatient DMG [facility] [id number] [facility] 11:00:00 11:00:00 1109 Medica l Group Results Test Description Test Time Test Comments Results Result Comments Source SURGICAL OUTREACH 2021-09-13 18:49:00 Test Item Value Reference Range Interpretation Comme nts SURGICAL RUN DATE: OUTREACH 09/13/21 [facility] [employer] d - LAB PAGE 1 RUN TIME: 1848 Specimen Inquiry RUN USER: INTERFACE (test PATIENT: code = YOLA ROMAN [id number] LOC: JORGE U #: [id number] AGE/SX: 70/F ROOM: RE09/11/21Jackie Paulino : 50 BED: DIS: STATUS: PRE REF TLOC: SPEC #: [id number] RECD: 09/12/21-0 531 STATUS: SOUHenna REQ #: [id number] LIA: 09/11/21- [address]: Jackie Cowan ENTERED: 09/120536 SP TYPE: SURGICAL OTHR DR: ORDERED: [id number], ANATOMIC SPEC, SPECIMEN TRACK PROCEDURES: [id number] (-[id number]) SPECIMEN TRACK (09/12/21-05) TISSUES: A. BREAST BIOPSY, FEMALE RIGHT - [...] >24 hours-48 hours Technical component performed at [id number] , [place] [address] Unless gross only, the diagnosis is based [...] CONTINUED ON NEXT PAGE RUN DATE: 09/13/21 [facility] Shane Joshi [facility] LAB PAGE 2 RUN TIME: 1848 Specimen Inquiry RUN USER: INTERFACE SPEC #: [id number] PATIENT: YLOA ROMAN #[id number] (Continued) Signed SIGNATURE ON FILE Eder Livingston 09/13/21 1849 END OF REPORT
[2023-01-08] MEDS: CEFAZOLIN 1 GM in NA CHLORIDE 0.9% 50 ML IVPB SCH (17:47)
[2023-01-08 18:00] VITALS: BMI 29.9
[2023-01-09] MEDS: CEFAZOLIN 1 GM in NA CHLORIDE 0.9% 50 ML IVPB SCH (01:02)
[2023-01-09 18:53] VITALS: BP 124/59; TEMP 98.2
--- NOTE | 2023-01-10 22:32 | OP ---
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 Preoperative Diagnoses: Stage 2 posterior wall prolapse (rectocele) and incomplete uterovaginal prol apse. Postoperative Diagnoses: Stage 2 posterior wall prolapse (rectocele), incomplete uterovaginal prolap se, perineal body defect, perineocele, and posterior enterocele. Procedures Performed: 1.Biologic graft augmented posterior wall repair. 2.Bilateral sacrospinous ligament fixation, cervical colpopexy. 3.Posterior enterocele repair. 4.Perineocele repair and cystoscopy. Ebl: 150. Specimens: No specimens. Drains: Wolf catheter and vaginal packing. Grafts: 6 x 8 [place] dermis graft by Coloplast, posterior wall significantly prolapsed, Bp +2. After the reduction of the posterior wall apical suspension, there was anterior wall prolapse with Ba at -1 , however, point C was at -7. Condition: Stable. Findings: Patient has had slight medial lateral episiotomy scar that had to be revised in order for me to perform a perineocele repair and perineal body reconstruction. This scar had to be significant ly freed in order for me to perform the procedure. Indications: Patient was asymptomatic. Patient with prolapse, type 2 diabetes, hypertension, hyperl ipidemia. She had medical clearance and then she was given options of observation, pelvic floor ther apy, surgical management with vaginal prolapse repair. After both daughters were present at the [facility], she was consented for a posterior wall repair, sacrospinous ligament fixation, cervical colpo pexy, and any other repairs as indicated including the posterior enterocele and perineal body defects or perineocele. After consenting appropriately, she was taken back to the OR. Description Of Procedure: She was taken to the OR, placed in supine fashion on the operating table, general anesthesia was given. She was placed in a dorsal lithotomy position using the [place] stirrups , carefully externally rotating her hip more than 45 degrees and without hyperflexion at the hip. 90 degrees angle maintained at the knees. SCDs were started. Positioning was checked. Time-out was d one. Since antibiotics were already given at the beginning, procedure was started. Lower abdomen, v ulva, vagina, and perineum were prepped and draped with Betadine and the Wolf was placed to drain th e bladder and retracted superiorly. Speculum was placed inside the vagina and POPQ done as dictated. On rectovaginal exam, there was a s ignificant perineal body defect. After changing the gloves, procedure was started. A andrew-shaped incision was made on the perineum , perineal body extending up in the posterior vaginal wall 2/3 to the junction of the lower 1/3 and t he upper 2/3. After injecting with dilute vasopressin 40 cc was injected, 40 units in 60 cc of juan f l saline. Then, a 15 blade was used to make the incision and vaginal epithelium was peeled off as we ll as the perineal body squamous epithelium. Then, the perineal body structures were dissected later ally exposing the remnants of the superficial and deep transverse perineum. Levator muscles were als o exposed as dissection was carried superiorly and laterally. Then, superiorly, the rectovaginal sep cary was from the vaginal epithelium, subepithelium. Dissection was carried all the way to the level of the cervix posteriorly, carefully dissecting sharply as well as bluntly with the help of Ray-Julisa. Laterally, pararectal space was entered on both sides. The posterior enterocele was disse cted in the midline and , then went over to the ischial spine and cleaned the sacrospinous l igament sweeping medially and posterior to the spine. The bowel was cleared off the sacrospinous lig ament on both sides. Sacrospinous ligament fixation, cervical colpopexy: The Prolene sutures on the Capio device were olimpia en 2 cm medial and posterior to the ischial spine on the ligament without encircling it. A good bite was taken with the Prolene and left on a tag. Similarly on the left side, similar dissection was pe rformed and left on a tag. The areas of attachment of the uterosacral ligaments to the cervix was identified after carefully dis secting the posterior enterocele. The ligaments here were grasped with 2-0 PDS sutures, one on each side of the distal uterosacral and then one in the center in the pericervical ring area. All these w ere held on retractors and [place] retractor was used. Then, the posterior enterocele repair: 3-0 Monocryl was used from qmby-bo-csty to close the posterio r enterocele completely reducing it to the level of the upper part of the rectovaginal septum where t he defect was noted. This reduced the enterocele completely. Biologic graft augmented posterior wall repair: Graft was fashioned from an 8 x 6 graft to a Y-shape d graft. The horizontal width of the graft was 3 cm. The stem measured in a vertical length to 3 cm . The small curve was made in the midline for the cervix to be accommodated. Then, the three 2-0 PD S sutures in the midline were passed through the graft and tied down to the cervix in the pericervica l ring as well as the distal uterosacral ligaments. The 2 Capio sutures were placed on the lateral a spect of the proximal arms with a pb stitch, then these were tied down, pulling the entire vagina up. Posteriorly, the distal rectovaginal septum was attached to the posterior wall after the buffing machine operator ior wall was slightly plicated as there was significant laxity in the remnant of the rectovaginal sep cary. Once this was done and this was anchored with 2-0 PDS in the distal aspect in the semicircular fashion to the lateral part of the graft as well, to the connective tissue as well. Then, the graft repair was completed for the posterior wall. Perineocele repair: The exposed parts of the external sphincter and the deep and superficial deep tr ansverse perinei were all visualized. The levators were plicated with 1 stitch very much towards the perineal body structures and into the levator muscle itself. Once this was tied down with a figure- of-eight 2-0 Vicryl, rest of the sutures were placed to reconstruct the perineum in 2 layers with int errupted 2-0 Vicryl sutures. Once these were done, these were fully reconstructed. The distal poste rior wall was attached to the perineal body with 2-0 Vicryl sutures. The vaginal epithelial closure was conducted with the help of 2-0 Vicryl suture in a continuous runni ng fashion after trimming ever so slightly to even out the edges. Then, the advancement flap was olimpia en on each side and re-attached to the perineal body with 2-0 Vicryl sutures. Then, 3-0 Vicryl was u sed to rebuild the subcutaneous perineal body tissues and then the vaginal and the perineal epitheliu m was closed with the help of a running 2-0 horizontal mattress sutures. Suture knot tied inside the hymen. Rectal exam was done. No evidence of any trauma or foreign body both in the sacrospinous ar ea as well as in the posterior wall. Cystoscopy was performed after the Wolf was removed with 30-degree lens, normal saline, 17-Guamanian sh eath. Excellent jets of urine from both ureteric orifices. No evidence of any trauma to the bladder . Bladder was then drained. Wolf was replaced. Vaginal packing was placed. Patient was recovered from anesthesia and taken to PACU in stable condition. Her daughter was briefed about her procedure . She will be staying overnight with for a voiding trial in the morning and if she feels, she will g o home with Home Health. MARQUISE/MARY Voice ID: [id number] Report ID: [id number]
== END 2023-01-09 14:22 | disposition home or self-care (01) ==
LOC: OR 11:24 → 2ND 16:56
PROVIDERS: ADMIT Obstetrics & Gynecology; ATTEND Obstetrics & Gynecology
PROC: 0JUC0JZ Supplement of Pelvic Region Subcutaneous Tissue and Fascia with Synthetic Substitute, Open Approach (ICD-10-PCS; 2023-01-08)
PROC: 0JQC0ZZ Repair Pelvic Region Subcutaneous Tissue and Fascia, Open Approach (ICD-10-PCS; 2023-01-08)
PROC: 0USG8ZZ Reposition Vagina, Via Natural or Artificial Opening Endoscopic (ICD-10-PCS; principal; 2023-01-08 13:00)
DX: N81.2 Incomplete uterovaginal prolapse (principal); N81.81 Perineocele; E11.9 Type 2 diabetes mellitus without complications; I10 Essential (primary) hypertension; E78.5 Hyperlipidemia, unspecified
CPT/HCPCS: 93005; 85025; 81001; 80048; 36415; 86900; 86850; 85610; 86901; 82947 ×6; 85730; 57282; 57250; 57267; J2550; J2704; J2710; J2001; J3010; J2270; J1170; J2405; J7030 ×2; J0690 ×2; G0378; G0379

== ENCOUNTER → 2023-03-22 | Emergency (ER) | payer MEDICARE ==
[~2023-03-22] MED LIST: ALBUTEROL 2.5 MG/3 ML NEB SOL ONE; LEVALBUTEROL 1.25 MG/3 ML NEB ONE
--- OUTSIDE RECORDS SUMMARY | 2023-03-22 14:41 | XMS REPORT | Continuity of Care Document ---
Author Name Unknown Address [address] [facility] [address] [place] [address] [facility] thconnect Address [address] [facility] [place] [address] Care Team Providers Care Dog Handler Name Role Phone PCP, PATIENT DOES NOT HAVE A Primary Care Physic Jackie Phillips Attending Clinician Ly adhikari [email or web address]_S Attending Clinician Delia sotelo UNKNOWN, ATTENDING Attending Clinician Neelam le Doctor Unassigned, Gilby Attending Clinician Jackie Beltran Admitting Clinician Ly adhikari GC_GCBZW_Ender_S Admitting Clinician Delia sotelo Payers Payer Name Policy Type Policy Number Effective Date Expirati on Date Source [facility] (MEDICARE REPLACEMENT HMO) [id number] 2021 00:00:00 MEDICARE PART A \T\ B [id number] 2022 00:00:00 Problems Condition Name Condition Details Condition Category Status Onset Date Resolution Date Last Treatment Date Treating Clinician Comments Source Hypothyroi d Hypothyroi d Disease Active 05-07 00:00: 00 [facility] Asymptomat ic postmenopa usal status Asymptomat ic postmenopa usal status Disease Active 05-07 00:00: 00 Overview: Formattin g of this note might be different from the original. 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 [facility] Allergies, Adverse Reactions, Alerts Allergy Name Allergy Type Status Severity Reaction(s) Onset Date Inactive Date Treating Clinician Comments Source NO KNOWN ALLERGIE S Drug Class Active [facility] Social History Social Habit Start Date Stop Date Quantity Comments Source Alcohol intake 2015-08-14 00:00:00 2015-08-14 00:00:00 Current non-drinker of alcohol (finding) [facility] Sex Assigned At 1950 00:00:00 1950 00:00:00 [facility] Smoking Status Start Date Stop Date Source Never smoked tobacco [facility] Medications Ordered Medication Name Filled Medication Name Start Date Stop Date Current Medication? Ordering Clinician Indication Dosage Frequency Signature (SIG) Comments Components Source enalapril (VASOTEC) 10 mg tablet 08-13 14:54: 01 Yes 10mg Take 10 mg by mouth daily. [facility] Procedures Procedure Date / Time Performed Performing Clinicia n Source ASSIGNMENT OF BENEFITS 2022-04-12 20:44:50 Docto r Unassigned, Gilby [facility] Encounters Start Date/Time End Date/Time Encounter Type Admission Type Attending Clinicians Care Facility Care Department Encounter ID Source 2021-09-11 15:21:00 Inpatient Jackie Oleary [facility] [id number] [facility] 2023-02-19 00:00:00 2023-02-19 00:00:00 Outpatient GC_GCBZW_Ka diyala_S PRIV PRIV [id number] [facility] 2023-01-31 00:00:00 2023-01-31 00:00:00 Outpatient GC_GCBZW_Ka diyala_S PRIV PRIV [id number] [facility] 2023-01-03 00:00:00 2023-01-03 00:00:00 Outpatient GC_GCBZW_Ka diyala_S PRIV PRIV [id number] [facility] 2023-01-03 00:00:00 2023-01-03 00:00:00 Outpatient GC_GCBZW_Ka diyala_S PRIV PRIV [id number] [facility] 2023-01-03 00:00:00 2023-01-03 00:00:00 Outpatient GC_GCBZW_Ka diyala_S PRIV PRIV [id number] [facility] 2023-01-03 00:00:00 2023-01-03 00:00:00 Outpatient GC_GCBZW_Ka diyala_S PRIV PRIV [id number] [facility] 2022-12-03 00:00:00 2022-12-03 00:00:00 Outpatient GC_GCBZW_Ka diyala_S PRIV PRIV [id number] [facility] 2022-11-19 00:00:00 2022-11-19 00:00:00 Outpatient GC_GCBZW_Ka diyala_S PRIV PRIV [id number] [facility] 2022-11-19 00:00:00 2022-11-19 00:00:00 Outpatient GC_GCBZW_Ka diyala_S PRIV PRIV [id number] [facility] 2022-11-15 00:00:00 2022-11-15 00:00:00 Outpatient GC_GCBZW_Ka diyala_S PRIV PRIV [id number] [facility] 2022-10-08 00:00:00 2022-10-08 00:00:00 Outpatient GC_GCBZW_Ka diyala_S PRIV PRIV [id number] [facility] 2022-09-29 00:00:00 2022-09-29 00:00:00 Outpatient GC_GCBZW_Ka diyala_S PRIV PRIV [id number] [facility] 2022-04-12 15:00:00 2022-04-12 15:00:00 Outpatient R UNKNOWN, ATTENDING [facility] [id number] [facility] 2022-04-12 00:00:00 2022-04-12 00:00:00 Orders Only Doctor Unassigned, Gilby [facility] [id number] [facility] 2021-09-11 08:00:00 2021-09-11 08:00:00 Outpatient Jackie Oleary [facility] [id number] [facility] 2021-09-06 04:14:00 2021-09-06 04:14:00 [facility] [id number] 2021-09-06 00:00:00 2021-09-06 00:00:00 Outpatient [facility] [id number] [facility] 2021-01-01 11:00:00 2021-01-01 11:00:00 Outpatient [facility] [id number] [facility] Results Test Description Test Time Test Comments Results Result Co mments Source
--- NOTE | 2023-03-22 15:49 | RAD REPORT ---
EXAM DESCRIPTION: RAD - Chest Single View - 03/22/2023 3:40 pm CLINICAL HISTORY: COUGH COMPARISON: Chest Pa And Lat (2 Views) dated 04/12/2022; Chest Pa And Lat (2 Views) dated 10/08/2021; Chest Pa And Lat (2 Views) dated 03/05/2021; Chest Single View dated 01/09/2020 FINDINGS: Lines: None. Lungs: No evidence of edema or pneumonia. Pleural: No significant pleural effusions or pneumothorax. Cardiac: Enlarged cardiopericardial silhouette. Mediastinum: Within normal limits. Bones: No acute fractures. Other: None IMPRESSION: No acute cardiopulmonary disease.
[2023-03-22 16:18] LABS: SARS-CoV-2 Antigen Rapid Res Negative (Negative)
[2023-03-22 16:30] LABS: Bilirubin Total 0.4 mg/dL (0.2-1.0); Potassium 3.4 mEq/L (3.5-5.1)
[2023-03-22 16:31] LABS: Albumin 3.2 g/dL (3.4-5.0); Bilirubin Direct 0.1 mg/dL (0-0.2); Bilirubin Indirect, Calculated 0.3 mg/dL (0.2-0.8); Magnesium 1.2 mg/dL (1.6-2.4); Protein, Total 6.6 g/dL (6.4-8.2)
[2023-03-22 16:51] LABS: Absolute Lymphocytes (CBC) 1.6 K/uL (0.7-4.9); Hematocrit 31.9 % (36.0-45.0); Lymphocytes % 26.2 % (15.3-44.8); MCV 95.8 fL (80-100); MPV 10.6 fL (7.6-11.3); Platelets 139 thou/uL (152-406); RBC Red Blood Cell Count 3.34 M/uL (3.86-4.86)
--- NOTE | 2023-03-22 17:09 | EDPHYS ---
Physician Documentation [facility] Name: Ct Mobley Age: 72 yrs Sex: Female : 1950 Arrival Date: 03/22/2023 Time: 14:39 Bed 14 Private MD: Darrian Montalvo E ED Physician Elbert Lowry HPI: 03/22 16:50 This 72 yrs old Female presents to ER via Ambulatory with complaints of Cough, rt Congestion. 16:50 Patient presents to the ED with about 3 days of cough, congestion, mild shortness of rt breath. She reports that chest pain when she coughs. Reports nasal congestion. Denies acute complaints at this time, symptoms are moderate in severity, no other aggravating or alleviating factors.. Historical: - Allergies: 14:57 No Known Allergies; hb - PMHx: 14:57 Diabetes - NIDDM; Hypertension; Thyroid problem; hb - Immunization history:: Adult Immunizations up to date, Client reports receiving the 2nd dose of the Covid vaccine, Flu vaccine is up to date. - Social history:: Smoking status: Patient denies any tobacco usage or history of. - Family history:: not pertinent. ROS: 16:50 Constitutional: Negative for fever, chills, and weight loss, Abdomen/GI: Negative for rt abdominal pain, nausea, vomiting, diarrhea, and constipation, MS/Extremity: Negative for injury and deformity, Skin: Negative for injury, rash, and discoloration, Neuro: Negative for headache, weakness, numbness, tingling, and seizure, Psych: Negative for depression, anxiety, suicide ideation, homicidal ideation, and hallucinations, 16:50 ENT: Positive for rhinorrhea, sinus congestion, 16:50 Cardiovascular: Positive for chest pain, Negative for edema, 16:50 Respiratory: Positive for cough, shortness of breath, Exam: 16:50 Constitutional: This is a well developed, well nourished patient who is awake, alert, rt and in no acute distress. Head/Face: Normocephalic, atraumatic. Chest/axilla: Normal chest wall appearance and motion. Nontender with no deformity. No lesions are appreciated. Cardiovascular: Regular rate and rhythm with a normal S1 and S2. No gallops, murmurs, or rubs. Normal PMI, no JVD. No pulse deficits. Respiratory: Lungs have equal breath sounds bilaterally, clear to auscultation and percussion. No rales, rhonchi or wheezes noted. No increased work of breathing, no retractions or nasal flaring. Abdomen/GI: Soft, non-tender, with normal bowel sounds. No distension or tympany. No guarding or rebound. No evidence of tenderness throughout. Skin: Warm, dry with normal turgor. Normal color with no rashes, no lesions, and no evidence of cellulitis. MS/ Extremity: Pulses equal, no cyanosis. Neurovascular intact. Full, normal range of motion. Neuro: Awake and alert, GCS 15, oriented to person, place, time, and situation. Cranial nerves II-XII grossly intact. Motor strength 5/5 in all extremities. Sensory grossly intact. Cerebellar exam normal. Normal gait. Psych: Awake, alert, with orientation to person, place and time. Behavior, mood, and affect are within normal limits. 16:50 ECG was reviewed by the Attending Physician. Vital Signs: 14:55 BP 152 / 88; Pulse 91; Resp 20; Temp 98.3(TE); Pulse Ox 98% on R/A; Weight 86.18 kg; hb Height 5 ft. 7 in. ; Pain 8/10; 15:55 BP 131 / 73; Pulse 87; Resp 20; Pulse Ox 100% ; mb9 16:56 BP 104 / 89; Pulse 92; Resp 18; Pulse Ox 100% on R/A; mb9 14:55 Body Mass Index 29.76 (86.18 kg, 170.18 cm) hb 14:55 Pain Scale: Adult hb MDM: 14:58 Patient medically screened. rt 17:11 Differential Diagnosis: Other Bronchitis, pneumonia, pneumothorax, congestive heart rt failure. Data reviewed: vital signs, nurses notes, lab test result(s), EKG, radiologic studies. Consideration of Admission/Observation Escalation of care including admission/observation considered. Symptoms improving, oxygenation appropriate, no indication for admission at this time.. I considered the following discharge prescriptions or medication management in the emergency department Medications were administered in the Emergency Department. See MAR. Independent interpretation of the following test(s) in the Emergency Department X-Ray: My interpretation is No pneumonia seen on interpretation of x-ray images. Test considered but Not performed: CT: Low suspicion for PE, CT angiogram not indicated. Care significantly affected by the following chronic conditions: Diabetes. Counseling: I had a detailed discussion with the patient and/or guardian regarding the historical points, exam findings, and any diagnostic results supporting the discharge/admit diagnosis, lab results, radiology results, the need for outpatient follow up, to return to the emergency department if symptoms worsen or persist or if there are any questions or concerns that arise at home. Response to treatment: the patient's symptoms have markedly improved after treatment. 03/22 15:03 Order name: Basic Metabolic Panel; Complete Time: 16:50 rt 03/22 15:03 Order name: CBC with Diff; Complete Time: 17:01 rt 03/22 15:03 Order name: LFT's; Complete Time: 16:50 rt 03/22 15:03 Order name: Magnesium; Complete Time: 16:50 rt 03/22 15:03 Order name: NT PRO-BNP; Complete Time: 16:50 rt 03/22 15:03 Order name: Troponin HS; Complete Time: 16:50 rt 03/22 15:03 Order name: Influenza Screen (a \T\ B); Complete Time: 16:50 rt 03/22 15:03 Order name: SARS RAPID; Complete Time: 16:50 rt 03/22 15:03 Order name: XRAY Chest (1 view); Complete Time: 15:52 rt 03/22 15:03 Order name: EKG; Complete Time: 15:04 03/22 15:03 Order name: Cardiac monitoring; Complete Time: 15:21 03/22 15:03 Order name: EKG - Nurse/Tech; Complete Time: 15:53 03/22 15:03 Order name: IV Saline Lock; Complete Time: 15:53 rt 03/22 15:03 Order name: Labs collected and sent; Complete Time: 15:53 rt 03/22 15:03 Order name: O2 Per Protocol; Complete Time: 15:21 03/22 15:03 Order name: O2 Sat Monitoring; Complete Time: 15:21 rt EC:50 Rate is 78 beats/min. Rhythm is regular, Normal Sinus Rhythm with Occasional PVCs. QRS rt [place] is Normal. [place] interval is normal. QRS interval is normal. QT interval is normal. No Q waves. T waves are Normal. No ST changes noted. Interpreted by me. Administered Medications: 15:53 Drug: DuoNeb Nebulize (3:1) (2.5 mg - 0.5 mg) 3 ml Nebulizer once Route: Nebulizer; mb9 Disposition Summary: 03/22/23 17:08 Discharge Ordered Notes: Location: Home rt Problem: new rt Symptoms: have improved rt Condition: Stable rt Diagnosis - Acute bronchitis, unspecified rt Followup: rt - With: Elbert Lowry MD - When: 2 - 3 days - Reason: Discharge Instructions: - Discharge Summary Sheet rt - Acute Bronchitis, Adult rt Forms: - Medication Reconciliation Form rt - Thank You Letter rt - Antibiotic Education rt - Prescription Opioid Use rt - Patient Portal Instructions rt - Leadership Thank You Letter rt Prescriptions: - albuterol sulfate 2.5 mg /3 mL (0.083 %) Inhalation Solution for Nebulization - nebulize 3 milliliter INHALATION route once; 90 milliliter; Refills: 0, Product rt Selection Permitted - Tessalon Perles 100 mg Oral Capsule - take 1 capsule ORAL route every 8 hours As needed; 15 capsule; Refills: 0, rt Product Selection Permitted - Prednisone 20 mg Oral tablet - take 1 tablet ORAL route once daily for 5 days; 5 tablet; Refills: 0, Product rt Selection Permitted Signatures: Dispatcher [employer] Tayler Palmer RN RN hb Breneman, Mary Beth RN RN mb9 Elbert Lowry MD MD rt
--- NOTE | 2023-03-22 17:09 | ER ---
Nurse's Notes [facility] Name: Ct Mobley Age: 72 yrs Sex: Female : 1950 Arrival Date: 03/22/2023 Time: 14:39 Bed 14 Private MD: Darrian Montalvo E Diagnosis: Acute bronchitis, unspecified Presentation: 03/22 14:55 Chief complaint: Painful cough, congestion, sore throat, and fatigue x 3 days, SOB hb since last night. Coronavirus screen: Client presents with at least one sign or symptom that may indicate coronavirus-19. Provider contacted for isolation considerations. Ebola Screen: No symptoms or risks identified at this time. Initial Sepsis Screen: Does the patient meet any 2 criteria? No. Patient's initial sepsis screen is negative. Does the patient have a suspected source of infection? No. Patient's initial sepsis screen is negative. Risk Assessment: Do you want to hurt yourself or someone else? Patient reports no desire to harm self or others. Onset of symptoms was March 20, 2023. 14:55 Method Of Arrival: Ambulatory hb 14:55 Acuity: JASE 3 hb Historical: - Allergies: 14:57 No Known Allergies; hb - PMHx: 14:57 Diabetes - NIDDM; Hypertension; Thyroid problem; hb - Immunization history:: Adult Immunizations up to date, Client reports receiving the 2nd dose of the Covid vaccine, Flu vaccine is up to date. - Social history:: Smoking status: Patient denies any tobacco usage or history of. - Family history:: not pertinent. Screenin:54 [facility] ED Fall Risk Assessment (Adult) History of falling in the last 3 months, mb9 including since admission No falls in past 3 months (0 pts) Confusion or Disorientation No (0 pts) Intoxicated or Sedated No (0 pts) Impaired Gait No (0 pts) Mobility Assist Device Used No (0 pt) Altered Elimination No (0 pt) Score/Fall Risk Level 0 - 2 = Low Risk Oriented to surroundings, Maintained a safe environment, Educated pt \T\ family on fall prevention, incl call for assistance when getting out of bed. Abuse screen: Denies threats or abuse. Nutritional screening: No deficits noted. Tuberculosis screening: No symptoms or risk factors identified. Assessment: 15:53 General: Appears in no apparent distress. Behavior is calm, cooperative. Pain: Denies mb9 pain. Neuro: Torres Agitation-Sedation Scale (RASS): 0 - Alert and Calm Level of Consciousness is awake, alert, obeys commands, Oriented to person, place, time, situation, Appropriate for age. Cardiovascular: Heart tones S1 S2 present Patient's skin is warm and dry. Respiratory: Reports cough that is Airway is patent Respiratory effort is even, unlabored, Respiratory pattern is regular, symmetrical, Breath sounds with wheezes bilaterally. GI: No signs and/or symptoms were reported involving the gastrointestinal system. : No signs and/or symptoms were reported regarding the genitourinary system. EENT: No signs and/or symptoms were reported regarding the EENT system. Derm: Skin is pink, warm \T\ dry. Musculoskeletal: Range of motion: intact in all extremities. 16:56 Reassessment: No changes from previously documented assessment. Patient and/or family mb9 updated on plan of care and expected duration. Pain level reassessed. Patient is alert, oriented x 3, equal unlabored respirations, skin warm/dry/pink. 17:23 Reassessment: No changes from previously documented assessment. Patient and/or family mb9 updated on plan of care and expected duration. Pain level reassessed. Patient is alert, oriented x 3, equal unlabored respirations, skin warm/dry/pink. Vital Signs: 14:55 BP 152 / 88; Pulse 91; Resp 20; Temp 98.3(TE); Pulse Ox 98% on R/A; Weight 86.18 kg; hb Height 5 ft. 7 in. ; Pain 8/10; 15:55 BP 131 / 73; Pulse 87; Resp 20; Pulse Ox 100% ; mb9 16:56 BP 104 / 89; Pulse 92; Resp 18; Pulse Ox 100% on R/A; mb9 14:55 Body Mass Index 29.76 (86.18 kg, 170.18 cm) hb 14:55 Pain Scale: Adult hb ED Course: 14:40 Patient arrived in ED. rg4 14:41 Darrian Montalvo MD is Private Physician. rg4 14:57 Triage completed. hb 14:58 Elbert Lowry MD is Attending Physician. rt 14:58 Arm band placed on. hb 15:21 Cele Riojas RN is Primary Nurse. mb9 15:42 XRAY Chest (1 view) In Process Unspecified. EDMS 15:45 Inserted saline lock: 22 gauge in right forearm, using aseptic technique. mb9 15:45 EKG done, by ED staff, reviewed by Elbert Lowry MD. mb9 15:53 SARS RAPID Sent. mb9 15:53 Influenza Screen (a \T\ B) Sent. mb9 15:53 Basic Metabolic Panel Sent. mb9 15:53 CBC with Diff Sent. mb9 15:53 LFT's Sent. mb9 15:53 NT PRO-BNP Sent. mb9 15:53 Troponin HS Sent. mb9 15:54 Placed in gown. Bed in low position. Call light in reach. Side rails up X 1. Client mb9 placed on continuous cardiac and pulse oximetry monitoring. NIBP monitoring applied. site monitor on. 15:55 No provider procedures requiring assistance completed. mb9 17:08 Elbert Lowry MD is Referral Physician. rt Administered Medications: 15:53 Drug: DuoNeb Nebulize (3:1) (2.5 mg - 0.5 mg) 3 ml Nebulizer once Route: Nebulizer; mb9 Medication: 15:55 VIS not applicable for this client. mb9 Outcome: 17:08 Discharge ordered by . rt 17:23 Patient left the ED. mb9 Signatures: Dispatcher [employer] EDMS Tayler Donis, RN RN Crista Rollins4 Cele Riojas RN RN mbElbert Smith MD MD rt Corrections: (The following items were deleted from the chart) 14:58 14:55 Chief complaint: Painful cough, congestion, sore throat, and fatigue x 3 days, hb SOB since last night. hb
[2023-03-22 19:50] VITALS: TEMP 98.3; O2SAT 100
[2023-03-22 20:06] VITALS: BP 104/89
== END ==
LOC: ER 14:39
DX: J20.9 Acute bronchitis, unspecified (principal); Z11.52 Encounter for screening for COVID-19
CPT/HCPCS: 93005; 85025; 80048; 36415; 83735; 80076; 84484; 83880; 87804 ×2; 71045; 94640; 87811; J7614; J7613